=== PATIENT | male | born 1975 | race Caucasian/White ===

== ENCOUNTER 2017-03-17 10:06 | Emergency (ER) | payer MEDICAID ==
[~2017-03-17] VITALS: Ht 172.7 cm; Wt 66.4 kg
[2017-03-17] MEDS ORDERED: SODIUM CHLORIDE 0.9% 1,000 ML IV ONE (11:39)
[2017-03-17] MEDS ORDERED: ONDANSETRON 2MG/ML, 2ML ONE (11:47)
[2017-03-17] MEDS ORDERED: LORazepam 2 MG/ML, 1ML ONE ×2 (11:47→14:37)
[2017-03-17] MEDS ORDERED: SODIUM CHLORIDE 0.9% 1,000ML IVBOLUS ONE (12:00)
[2017-03-17] MEDS ORDERED: THIAMINE 100 MG in SODIUM CHLORIDE 0.9% 50 ML IVPB ONE (12:00)
[2017-03-17] MEDS ORDERED: SODIUM CHLORIDE FLUSH 10ML SYR IVF ONE (12:00)
[2017-03-17] MEDS ORDERED: ONDANSETRON 2MG/ML, 2ML IVPush ONE (12:00)
[2017-03-17] MEDS ORDERED: MECLIZINE CHEWABLE 25 MG TAB PO ONE (12:30)
[2017-03-17] MEDS: LORazepam 2 MG/ML, 1ML IVPush PRN ×2 (12:38→14:39)
[2017-03-17 12:43] LABS: ASPARTATE AMINO TRANSFERASE 96 U/L (15-37); BLOOD UREA NITROGEN 8 mg/dL (7-18)
[2017-03-17] MEDS ORDERED: MECLIZINE CHEWABLE 25 MG TAB ONE (13:03)
[2017-03-17 16:12] VITALS: BP 119/73
== END 2017-03-17 16:29 | disposition home or self-care (01) ==
LOC: ED 13:56
DX: F10.151 Alcohol abuse with alcohol-induced psychotic disorder with hallucinations (principal)
CPT/HCPCS: 36415; 70450; 80053; 83605; 83690; 85025; 93005; 96365; 96366; 96375; 96376; 99285; J2060; J2405; J3411; J7030

== ENCOUNTER 2018-05-08 22:29 | Inpatient (IN) | payer MEDICAID, OTHER ==
[~2018-05-08] VITALS: Ht 182.9 cm; Wt 75.0 kg
[~2018-05-08 22:29] MED LIST: DIVA500T2 PO; LEVE500T53 PO; PROP10TA PO
[2018-05-08] MEDS ORDERED: LORazepam 2 MG/ML, 1ML IVPush ONE (23:00)
[2018-05-08] MEDS ORDERED: SODIUM CHLORIDE 0.9% 1,000ML IVBOLUS ONE (23:00)
[2018-05-08] MEDS ORDERED: FAMOTIDINE 20 MG/2 ML IVP ONE (23:00)
[2018-05-08] MEDS ORDERED: PROMETHAZINE 25 MG/ML, 1ML IM ONE (23:00)
[2018-05-08] MEDS ORDERED: SODIUM CHLORIDE FLUSH 10ML SYR IVF ONE (23:00)
[2018-05-08 23:13] LABS: BASOPHILS # (AUTO) 0.02 x10^3/uL (0-0.1); BASOPHILS % (AUTO) 0 % (0-1); EOSINOPHILS % (AUTO) 0 % (1-7); LYMPHOCYTES # (AUTO) 0.47 x10^3/uL (1-3.4); LYMPHOCYTES % (AUTO) 4 % (22-44); MD NO; MEAN CORPUSCULAR HGB CONC 33.7 g/dL (33.2-36.2); MEAN PLATELET VOLUME 8.9 fL (7.4-10.4); MONOCYTES # (AUTO) 1.16 x10^3/uL (0.2-0.8); MONOCYTES % (AUTO) 9 % (2-9); NEUTROPHILS # (AUTO) 11.59 x10^3/uL (1.8-6.8); NEUTROPHILS % (AUTO) 88 % (42-75); PLATELET COUNT 185 x10^3/uL (130-400); RED BLOOD COUNT 6.02 x10^6/uL (4.38-5.82); RED CELL DISTRIBUTION WIDTH 14.3 % (9.4-14.8)
[2018-05-08] MEDS ORDERED: PROMETHAZINE 25 MG/ML, 1ML ONE (23:21)
[2018-05-08] MEDS ORDERED: LORazepam 2 MG/ML, 1ML ONE (23:21)
[2018-05-08] MEDS ORDERED: FAMOTIDINE 20 MG/2 ML ONE (23:22)
[2018-05-08 23:24] LABS: ALANINE AMINOTRANSFERASE 66 U/L (12-78); ALBUMIN 5.6 g/dL (3.4-5.0); ANION GAP 36 mmol/L (5-15); CALCIUM 10.4 mg/dL (8.5-10.1); CHLORIDE 81 mmol/L (98-107); CREATININE 2.35 mg/dL (0.7-1.3)
[2018-05-08 23:25] LABS: ALKALINE PHOSPHATASE 88 U/L (45-117); BILIRUBIN,TOTAL 1.5 mg/dL (0.2-1.0); TOTAL PROTEIN 10.3 g/dL (6.4-8.2)
[2018-05-08 23:32] LABS: MICROSCOPIC INDICATED
[2018-05-08 23:38] LABS: AMPHETAMINE SCREEN, URINE Negative (Negative); BARBITURATE SCREEN, URINE Negative (Negative); BENZODIAZEPINE SCREEN, URINE Negative (Negative); CANNABINOID SCREEN, URINE Positive (Negative); COCAINE SCREEN, URINE Negative (Negative); METHADONE SCREEN, URINE Negative (Negative); OPIATE SCREEN, URINE Negative (Negative)
[2018-05-08 23:56] LABS: CULTURE INDICATED? YES
[2018-05-09] MEDS ORDERED: SODIUM CHLORIDE 0.9% 1,000ML IVBOLUS ONE
[2018-05-09] MEDS ORDERED: CEFOTETAN PMX 1GM/50ML 50 ML IV ONE (01:00)
[2018-05-09] MEDS ORDERED: CEFOTETAN PMX 1GM/50ML 50 ML ONE (01:13)
[2018-05-09 02:55] VITALS: BP 136/85
[2018-05-09] MEDS ORDERED: POTASSIUM CHLORIDE 20 MEQ, MAGNESIUM SULFATE 2 GM, THIAMINE 100 MG, MVI ADULT 10 ML, FO... IV SCH ×2 (03:46→16:30)
[2018-05-09] MEDS ORDERED: BISACODYL 10 MG SUPP PR PRN (04:00)
[2018-05-09] MEDS ORDERED: LORazepam 1MG TABLET PO PRN ×4 (04:00)
[2018-05-09] MEDS ORDERED: DOCUSATE 100 MG CAPSULE PO PRN (04:00)
[2018-05-09] MEDS ORDERED: PROMETHAZINE 25 MG/ML, 1ML IM PRN (04:00)
[2018-05-09] MEDS ORDERED: LABETALOL 5MG/ML, 20ML IVPush PRN (04:00)
[2018-05-09] MEDS ORDERED: POLYETHYLENE GLYCOL 17 GM PACKET PO PRN (04:00)
[2018-05-09] MEDS ORDERED: LORazepam 0.5MG TABLET PO PRN (04:00)
[2018-05-09] MEDS ORDERED: LORazepam 2 MG/ML, 1ML IV PRN ×5 (04:00)
[2018-05-09] MEDS ORDERED: ONDANSETRON ODT 4 MG PO PRN (04:00)
[2018-05-09] MEDS ORDERED: ACETAMINOPHEN 325 MG TABLET PO PRN (04:00)
[2018-05-09] MEDS ORDERED: PANTOPRAZOLE 40 MG IV IVPush SCH (04:00)
[2018-05-09] MEDS ORDERED: hydrALAzine 20 MG/ML, 1ML IVPush PRN (04:00)
[2018-05-09 04:18] LABS: MEAN CORPUSCULAR HEMOGLOBIN 31.6 pg (27.5-34.5); MEAN CORPUSCULAR HGB CONC 34.6 g/dL (33.2-36.2); MEAN CORPUSCULAR VOLUME 91.4 fL (81-97); MEAN PLATELET VOLUME 8.9 fL (7.4-10.4); PLATELET COUNT 161 x10^3/uL (130-400); RED BLOOD COUNT 5.14 x10^6/uL (4.38-5.82); RED CELL DISTRIBUTION WIDTH 14.1 % (9.4-14.8)
[2018-05-09 04:27] LABS: ALBUMIN 4.2 g/dL (3.4-5.0); ANION GAP 17 mmol/L (5-15); CALCIUM 8.4 mg/dL (8.5-10.1); CHLORIDE 97 mmol/L (98-107)
[2018-05-09 04:30] LABS: ALANINE AMINOTRANSFERASE 49 U/L (12-78); CHOLESTEROL, TOTAL 239 mg/dL (140-239); CREATININE 1.92 mg/dL (0.7-1.3); TRIGLYCERIDES 149 mg/dL (50-200); TROPONIN I < 0.015 ng/mL (0.000-0.045); VLDL CHOLESTEROL 30 mg/dL (0-25)
[2018-05-09 04:36] LABS: ALKALINE PHOSPHATASE 66 U/L (45-117); CHOL/HDL RATIO 3.2; FREE T4 (FREE THYROXINE) 1.17 ng/dL (0.76-1.46); HDL CHOL % 31 % (26-37); HDL CHOLESTEROL (DIRECT) 75 mg/dL (40-60); LDL CHOLESTEROL,CALCULATED 134 mg/dL (54-169); LDL/HDL RATIO 1.8 (0.5-3.0); THYROID STIMULATING HORMONE 0.709 mIU/L (0.358-3.740); TOTAL PROTEIN 7.9 g/dL (6.4-8.2)
[2018-05-09 04:56] LABS: BASOPHILS % (AUTO) 0 % (0-1); EOSINOPHILS % (AUTO) 0 % (1-7); LYMPHOCYTES # (AUTO) 0.82 x10^3/uL (1-3.4); LYMPHOCYTES % (AUTO) 7 % (22-44); MD SCAN; MONOCYTES # (AUTO) 1.45 x10^3/uL (0.2-0.8); MONOCYTES % (AUTO) 13 % (2-9); NEUTROPHILS # (AUTO) 9.05 x10^3/uL (1.8-6.8); NEUTROPHILS % (AUTO) 80 % (42-75)
[2018-05-09 05:04] LABS: HEMOGLOBIN A1C 5.5 % (4.2-6.3)
[2018-05-09] MEDS: NICOTINE 14MG/24 HR PATCH.TD24 TD SCH (05:05)
[2018-05-09] MEDS: ONDANSETRON 2MG/ML, 2ML IVPush PRN ×3 (05:05→18:06)
[2018-05-09 07:50] VITALS: BP 139/82
[2018-05-09] MEDS: SODIUM CHLORIDE 0.9% 1,000 ML IV SCH ×2 (10:00→16:40)
[2018-05-09] MEDS: LEVETIRACETAM 500 MG TABLET PO SCH ×2 (10:19→21:33)
[2018-05-09] MEDS: PROPRANOLOL 10 MG TABLET PO SCH (10:19)
[2018-05-09] MEDS: DIVALPROEX 250 MG TABLET.DR PO SCH ×2 (10:19→21:33)
[2018-05-09 10:36] LABS: TROPONIN I < 0.015 ng/mL (0.000-0.045)
[2018-05-09 14:07] VITALS: BP 134/78
[2018-05-09] MEDS: POTASSIUM CHLORIDE 20 MEQ, MAGNESIUM SULFATE 2 GM, THIAMINE 100 MG, MVI ADULT 10 ML, FO... IV SCH (16:27)
[2018-05-09 16:32] LABS: CULTURE INDICATED? NO; MICROSCOPIC AUTO
[2018-05-09 19:31] VITALS: BP 115/75
[2018-05-10 02:47] VITALS: BP 122/79
[2018-05-10] MEDS: POTASSIUM CHLORIDE 20 MEQ, MAGNESIUM SULFATE 2 GM, THIAMINE 100 MG, MVI ADULT 10 ML, FO... IV SCH (05:35)
[2018-05-10] MEDS: ONDANSETRON 2MG/ML, 2ML IVPush PRN ×3 (05:36→16:29)
[2018-05-10 06:01] LABS: BASOPHILS # (AUTO) 0.05 x10^3/uL (0-0.1); BASOPHILS % (AUTO) 1 % (0-1); EOSINOPHILS # (AUTO) 0.02 x10^3/uL (0-0.4); EOSINOPHILS % (AUTO) 0 % (1-7); LYMPHOCYTES # (AUTO) 2.24 x10^3/uL (1-3.4); LYMPHOCYTES % (AUTO) 23 % (22-44); MD NO; MEAN CORPUSCULAR HEMOGLOBIN 31.4 pg (27.5-34.5); MEAN CORPUSCULAR HGB CONC 33.8 g/dL (33.2-36.2); MEAN CORPUSCULAR VOLUME 92.9 fL (81-97); MEAN PLATELET VOLUME 9.7 fL (7.4-10.4); MONOCYTES # (AUTO) 0.93 x10^3/uL (0.2-0.8); MONOCYTES % (AUTO) 10 % (2-9); NEUTROPHILS # (AUTO) 6.52 x10^3/uL (1.8-6.8); NEUTROPHILS % (AUTO) 67 % (42-75); PLATELET COUNT 116 x10^3/uL (130-400); RED BLOOD COUNT 5.02 x10^6/uL (4.38-5.82); RED CELL DISTRIBUTION WIDTH 14.4 % (9.4-14.8)
[2018-05-10 06:05] LABS: ANION GAP 9 mmol/L (5-15); CALCIUM 8.9 mg/dL (8.5-10.1); CHLORIDE 102 mmol/L (98-107); CREATININE 1.33 mg/dL (0.7-1.3)
[2018-05-10] MEDS ORDERED: PANTOPROZOLE 40MG TABLET PO SCH (07:30)
[2018-05-10 08:38] VITALS: BP 126/72
[2018-05-10] MEDS: NICOTINE 14MG/24 HR PATCH.TD24 TD SCH (09:00)
[2018-05-10] MEDS ORDERED: POTASSIUM CHLORIDE 20 MEQ TAB.ER.PRT PO ONE (09:00)
[2018-05-10] MEDS: NEUTRA PHOS K 250 MG TABLET PO SCH ×3 (09:13→21:49)
[2018-05-10] MEDS: LEVETIRACETAM 500 MG TABLET PO SCH (09:13)
[2018-05-10] MEDS: PROPRANOLOL 10 MG TABLET PO SCH (09:13)
[2018-05-10] MEDS: DIVALPROEX 250 MG TABLET.DR PO SCH (09:13)
[2018-05-10] MEDS: SUCRALFATE 1 GM/10 ML UDC PO SCH ×3 (10:48→21:49)
[2018-05-10] MEDS ORDERED: ENOXAPARIN 40 MG/0.4 ML SQ SCH (11:00)
[2018-05-10 12:58] VITALS: BP 122/85
[2018-05-10] MEDS: PANTOPROZOLE 40MG TABLET PO SCH (16:29)
[2018-05-10 20:00] VITALS: BP 120/86
[2018-05-11 01:06] VITALS: BP 122/80
[2018-05-11] MEDS: POTASSIUM CHLORIDE 20 MEQ, MAGNESIUM SULFATE 2 GM, THIAMINE 100 MG, MVI ADULT 10 ML, FO... IV SCH (06:00)
[2018-05-11 06:03] LABS: MEAN CORPUSCULAR HEMOGLOBIN 31.5 pg (27.5-34.5); MEAN CORPUSCULAR VOLUME 92.7 fL (81-97); MEAN PLATELET VOLUME 10.5 fL (7.4-10.4); PLATELET COUNT 95 x10^3/uL (130-400); RED BLOOD COUNT 4.34 x10^6/uL (4.38-5.82); RED CELL DISTRIBUTION WIDTH 13.9 % (9.4-14.8)
[2018-05-11 06:14] LABS: ANION GAP 6 mmol/L (5-15); CALCIUM 8.5 mg/dL (8.5-10.1); CHLORIDE 105 mmol/L (98-107)
[2018-05-11 06:19] LABS: ALANINE AMINOTRANSFERASE 49 U/L (12-78); ALKALINE PHOSPHATASE 45 U/L (45-117); BILIRUBIN,TOTAL 1.1 mg/dL (0.2-1.0); CREATININE 0.68 mg/dL (0.7-1.3); TOTAL PROTEIN 6.2 g/dL (6.4-8.2)
[2018-05-11 06:38] LABS: BASOPHILS # (AUTO) 0.02 x10^3/uL (0-0.1); BASOPHILS % (AUTO) 0 % (0-1); EOSINOPHILS # (AUTO) 0.05 x10^3/uL (0-0.4); EOSINOPHILS % (AUTO) 1 % (1-7); LYMPHOCYTES # (AUTO) 1.84 x10^3/uL (1-3.4); LYMPHOCYTES % (AUTO) 31 % (22-44); MD SCAN; MONOCYTES # (AUTO) 0.36 x10^3/uL (0.2-0.8); MONOCYTES % (AUTO) 6 % (2-9); NEUTROPHILS # (AUTO) 3.62 x10^3/uL (1.8-6.8); NEUTROPHILS % (AUTO) 61 % (42-75)
[2018-05-11 06:44] VITALS: BP 131/75
[2018-05-11] MEDS: POTASSIUM CHLORIDE 10% 40 MEQ/30 ML UDC PO SCH ×2 (08:53→11:45)
[2018-05-11] MEDS: PANTOPROZOLE 40MG TABLET PO SCH (08:53)
[2018-05-11] MEDS: SUCRALFATE 1 GM/10 ML UDC PO SCH ×2 (08:53→11:44)
[2018-05-11] MEDS: PROPRANOLOL 10 MG TABLET PO SCH (08:53)
[2018-05-11] MEDS: ONDANSETRON 2MG/ML, 2ML IVPush PRN (08:54)
[2018-05-11] MEDS: NICOTINE 14MG/24 HR PATCH.TD24 TD SCH (08:54)
[2018-05-11] MEDS ORDERED: SUCR1ORA5 PO (10:38)
[2018-05-11] MEDS ORDERED: OMEP40CA6 PO (10:41)
[2018-05-11] MEDS ORDERED: POTASSIUM CHLORIDE 10% 40 MEQ/30 ML UDC PO SCH (12:45)
[2018-05-11] MEDS ORDERED: PROP10TA PO (13:06)
[2018-05-11] MEDS ORDERED: ONDA4TAB10 PO (13:06)
[2018-05-11] MEDS ORDERED: POTASSIUM CHLORIDE 20 MEQ TAB.ER.PRT PO SCH (13:30)
== END 2018-05-11 12:45 | disposition home or self-care (01) | DRG 871 ==
LOC: ED 23:54 → EDIP 05-09 01:57 → 4EST 05-09 02:47 → DCLOUNGE 05-11 12:40
PROVIDERS: ADMIT Internal Medicine; ATTEND Internal Medicine
DX: A41.9 Sepsis, unspecified organism (principal); N17.0 Acute kidney failure with tubular necrosis; E87.1 Hypo-osmolality and hyponatremia; F10.239 Alcohol dependence with withdrawal, unspecified; D69.6 Thrombocytopenia, unspecified; D75.1 Secondary polycythemia; E83.39 Other disorders of phosphorus metabolism; F17.210 Nicotine dependence, cigarettes, uncomplicated; T40.7X5A Adverse effect of cannabis (derivatives), initial encounter; E86.0 Dehydration; E87.6 Hypokalemia; F12.10 Cannabis abuse, uncomplicated; I10 Essential (primary) hypertension; K20.9 Esophagitis, unspecified; K29.70 Gastritis, unspecified, without bleeding; Z91.14 Patient's other noncompliance with medication regimen; Y92.89 Other specified places as the place of occurrence of the external cause; Z71.6 Tobacco abuse counseling
CPT/HCPCS: 36415; 99285; J7042; S0028; 74176; 80048; 80053; 80061; 80307; 81001; 83036; 83605; 83690; 83735; 84100; 84439; 84443; 84484; 85025; 87040; 87086; 96361; 96365; 96372; 96375; J2405; J2550; J3411; J3475; J3480; C9113; J2060; J7030; S0074

== ENCOUNTER 2018-07-22 11:20 | Emergency (ER) | payer MEDICAID ==
[~2018-07-22] VITALS: Ht 182.9 cm; Wt 65.0 kg
[~2018-07-22 11:20] MED LIST changes: +OMEP40CA6 PO; +ONDA4TAB10 PO; +SUCR1ORA5 PO
[2018-07-22] MEDS ORDERED: CHLORDIAZEPOXIDE 25 MG CAPSULE PO ONE (11:30)
[2018-07-22] MEDS ORDERED: THIAMINE 100 MG in SODIUM CHLORIDE 0.9% 50 ML IVPB ONE (11:30)
[2018-07-22] MEDS ORDERED: SODIUM CHLORIDE FLUSH 10ML SYR IVF ONE (11:30)
[2018-07-22] MEDS ORDERED: SODIUM CHLORIDE 0.9% 1,000ML IVBOLUS ONE (11:30)
[2018-07-22] MEDS ORDERED: LORazepam 2 MG/ML, 1ML ONE ×3 (11:51→13:42)
[2018-07-22] MEDS ORDERED: CHLORDIAZEPOXIDE 25 MG CAPSULE ONE (11:54)
[2018-07-22] MEDS: LORazepam 2 MG/ML, 1ML IVPush PRN ×2 (11:58→13:45)
[2018-07-22 11:59] LABS: BASOPHILS # (AUTO) 0.03 x10^3/uL (0-0.1); BASOPHILS % (AUTO) 0 % (0-1); EOSINOPHILS # (AUTO) 0.03 x10^3/uL (0-0.4); EOSINOPHILS % (AUTO) 1 % (1-7); LYMPHOCYTES # (AUTO) 1.67 x10^3/uL (1-3.4); LYMPHOCYTES % (AUTO) 25 % (22-44); MD NO; MEAN CORPUSCULAR HEMOGLOBIN 31.5 pg (27.5-34.5); MEAN CORPUSCULAR HGB CONC 33.8 g/dL (33.2-36.2); MEAN CORPUSCULAR VOLUME 93.2 fL (81-97); MEAN PLATELET VOLUME 8.8 fL (7.4-10.4); MONOCYTES % (AUTO) 11 % (2-9); NEUTROPHILS # (AUTO) 4.18 x10^3/uL (1.8-6.8); NEUTROPHILS % (AUTO) 63 % (42-75); PLATELET COUNT 174 x10^3/uL (130-400); RED BLOOD COUNT 5.07 x10^6/uL (4.38-5.82); RED CELL DISTRIBUTION WIDTH 14.1 % (9.4-14.8)
[2018-07-22 12:11] LABS: ALANINE AMINOTRANSFERASE 128 U/L (12-78); ALBUMIN 4.5 g/dL (3.4-5.0); ANION GAP 20 mmol/L (5-15); CALCIUM 9.1 mg/dL (8.5-10.1); CHLORIDE 100 mmol/L (98-107); CREATININE 0.82 mg/dL (0.7-1.3)
[2018-07-22 12:22] LABS: ALKALINE PHOSPHATASE 67 U/L (45-117); BILIRUBIN,TOTAL 0.8 mg/dL (0.2-1.0); TOTAL PROTEIN 8.7 g/dL (6.4-8.2)
[2018-07-22 16:11] VITALS: BP 113/69
== END 2018-07-22 16:25 | disposition home or self-care (01) ==
LOC: ED 12:53
DX: F10.220 Alcohol dependence with intoxication, uncomplicated (principal); I10 Essential (primary) hypertension; G40.909 Epilepsy, unspecified, not intractable, without status epilepticus
CPT/HCPCS: 36415; 80053; 80307; 83735; 85025; 96365; 96366; 96375; 96376; 99285; J2060; J3411; J7030; 99284

== ENCOUNTER 2018-08-11 09:48 | Inpatient (IN) | payer MEDICAID ==
[~2018-08-11] VITALS: Ht 182.9 cm; Wt 72.0 kg
[2018-08-11] MEDS ORDERED: CHLORDIAZEPOXIDE 25 MG CAPSULE PO ONE (10:00)
[2018-08-11] MEDS ORDERED: SODIUM CHLORIDE FLUSH 10ML SYR IVF ONE (10:00)
[2018-08-11] MEDS ORDERED: SODIUM CHLORIDE 0.9% 1,000ML IVBOLUS ONE (10:00)
[2018-08-11] MEDS ORDERED: CHLORDIAZEPOXIDE 25 MG CAPSULE ONE (10:18)
[2018-08-11] MEDS ORDERED: LORazepam 2 MG/ML, 1ML ONE (10:19)
[2018-08-11 10:20] LABS: INTERNATIONAL NORMALIZED RATIO 0.98 (0.93-1.1); PROTHROMBIN TIME 10.1 Seconds (9.6-11.5)
[2018-08-11 10:22] LABS: ALANINE AMINOTRANSFERASE 94 U/L (12-78); ALBUMIN 4.2 g/dL (3.4-5.0); ANION GAP 19 mmol/L (5-15); CHLORIDE 94 mmol/L (98-107); CREATININE 0.92 mg/dL (0.7-1.3); MEAN CORPUSCULAR HEMOGLOBIN 32.3 pg (27.5-34.5); MEAN CORPUSCULAR HGB CONC 34.3 g/dL (33.2-36.2); MEAN CORPUSCULAR VOLUME 94.1 fL (81-97); RED BLOOD COUNT 4.72 x10^6/uL (4.38-5.82); RED CELL DISTRIBUTION WIDTH 13.6 % (9.4-14.8)
[2018-08-11 10:24] LABS: ALKALINE PHOSPHATASE 57 U/L (45-117); BILIRUBIN,TOTAL 1.3 mg/dL (0.2-1.0); TOTAL PROTEIN 7.7 g/dL (6.4-8.2)
[2018-08-11] MEDS: LORazepam 2 MG/ML, 1ML IVPush PRN ×2 (10:24→11:00)
[2018-08-11] MEDS ORDERED: MAGNESIUM SULFATE 1 GM, THIAMINE 100 MG, FOLIC ACID 1 MG, MVI ADULT 10 ML in SODIUM CHL... IV ONE (10:30)
[2018-08-11 10:43] LABS: ACETONE, SERUM Large (80mg/dL) mg/dL (Negative)
[2018-08-11 10:57] LABS: BASOPHILS # (AUTO) 0.03 x10^3/uL (0-0.1); BASOPHILS % (AUTO) 0 % (0-1); EOSINOPHILS # (AUTO) 0.03 x10^3/uL (0-0.4); EOSINOPHILS % (AUTO) 0 % (1-7); LYMPHOCYTES # (AUTO) 0.72 x10^3/uL (1-3.4); LYMPHOCYTES % (AUTO) 10 % (22-44); MD SCAN; MEAN PLATELET VOLUME 9.8 fL (7.4-10.4); MONOCYTES # (AUTO) 0.49 x10^3/uL (0.2-0.8); MONOCYTES % (AUTO) 7 % (2-9); NEUTROPHILS % (AUTO) 82 % (42-75); PLATELET COUNT 83 x10^3/uL (130-400)
[2018-08-11] MEDS ORDERED: MAGNESIUM SULFATE PMX 2GM/50ML 50 ML IV ONE (11:00)
[2018-08-11 11:37] LABS: MICROSCOPIC AUTO
[2018-08-11 11:41] LABS: CULTURE INDICATED? YES
[2018-08-11] MEDS ORDERED: POTASSIUM CHLORIDE 20 MEQ TAB.ER.PRT PO ONE (12:00)
[2018-08-11] MEDS ORDERED: DOCUSATE 100 MG CAPSULE PO PRN (12:30)
[2018-08-11] MEDS ORDERED: LORazepam 1MG TABLET PO PRN ×3 (12:30)
[2018-08-11] MEDS ORDERED: LORazepam 2 MG/ML, 1ML IV PRN ×5 (12:30)
[2018-08-11] MEDS ORDERED: HEPARIN 5,000 UNITS/ML, 1ML SQ SCH (12:30)
[2018-08-11] MEDS ORDERED: BISACODYL 10 MG SUPP PR PRN (12:30)
[2018-08-11] MEDS ORDERED: NICOTINE 7 MG/24 HR PATCH.TD24 TD SCH (12:30)
[2018-08-11] MEDS ORDERED: LABETALOL 5MG/ML, 20ML IVPush PRN (12:30)
[2018-08-11] MEDS ORDERED: LORazepam 0.5MG TABLET PO PRN (12:30)
[2018-08-11] MEDS ORDERED: ONDANSETRON 2MG/ML, 2ML IVPush PRN (12:30)
[2018-08-11] MEDS ORDERED: ENALAPRILAT 1.25 MG/ML, 2ML IVPush PRN (12:30)
[2018-08-11 12:58] LABS: % IRON SATURATION 82 % (20-55); IRON LEVEL 187 mcg/dL (65-175); TOTAL IRON BINDING CAPACITY 228 mcg/dL (250-450)
[2018-08-11 13:17] VITALS: BP 118/72
[2018-08-11 18:12] VITALS: BP 118/72
[2018-08-11] MEDS ORDERED: DIVA500T2 PO (18:12)
[2018-08-11] MEDS ORDERED: LEVE750T37 PO (18:12)
[2018-08-11] MEDS: LORazepam 1MG TABLET PO PRN ×2 (18:20→22:08)
[2018-08-11 19:50] VITALS: BP 138/82
[2018-08-11] MEDS: ONDANSETRON ODT 4 MG PO PRN (22:08)
[2018-08-12 01:13] VITALS: BP 120/78
[2018-08-12] MEDS: ONDANSETRON ODT 4 MG PO PRN (05:43)
[2018-08-12] MEDS: LORazepam 1MG TABLET PO PRN (05:43)
[2018-08-12 06:28] LABS: ALBUMIN 3.5 g/dL (3.4-5.0); ANION GAP 14 mmol/L (5-15); CALCIUM 8.4 mg/dL (8.5-10.1); CHLORIDE 103 mmol/L (98-107)
[2018-08-12 06:33] LABS: ALANINE AMINOTRANSFERASE 77 U/L (12-78); ALKALINE PHOSPHATASE 52 U/L (45-117); BILIRUBIN,TOTAL 1.1 mg/dL (0.2-1.0); TOTAL PROTEIN 6.9 g/dL (6.4-8.2)
[2018-08-12 06:41] LABS: BASOPHILS # (AUTO) 0.02 x10^3/uL (0-0.1); BASOPHILS % (AUTO) 0 % (0-1); EOSINOPHILS # (AUTO) 0.14 x10^3/uL (0-0.4); EOSINOPHILS % (AUTO) 3 % (1-7); LYMPHOCYTES # (AUTO) 1.43 x10^3/uL (1-3.4); LYMPHOCYTES % (AUTO) 30 % (22-44); MD SCAN; MEAN CORPUSCULAR HEMOGLOBIN 31.8 pg (27.5-34.5); MEAN CORPUSCULAR HGB CONC 33.8 g/dL (33.2-36.2); MONOCYTES # (AUTO) 0.39 x10^3/uL (0.2-0.8); MONOCYTES % (AUTO) 8 % (2-9); NEUTROPHILS # (AUTO) 2.74 x10^3/uL (1.8-6.8); NEUTROPHILS % (AUTO) 58 % (42-75); PLATELET COUNT 60 x10^3/uL (130-400); RED BLOOD COUNT 4.52 x10^6/uL (4.38-5.82); RED CELL DISTRIBUTION WIDTH 14.1 % (9.4-14.8)
[2018-08-12 07:30] VITALS: BP 117/74
[2018-08-12] MEDS ORDERED: SENNA/DOCUSATE TABLET PO SCH (09:00)
== END 2018-08-12 12:30 | disposition home or self-care (01) | DRG 897 ==
LOC: ED 09:53 → EDIP 11:32 → 4EST 12:50
PROVIDERS: ADMIT Internal Medicine; ATTEND Internal Medicine
DX: F10.239 Alcohol dependence with withdrawal, unspecified (principal); E87.1 Hypo-osmolality and hyponatremia; E87.2 Acidosis; G40.909 Epilepsy, unspecified, not intractable, without status epilepticus; I10 Essential (primary) hypertension; E87.6 Hypokalemia; E83.42 Hypomagnesemia; D69.59 Other secondary thrombocytopenia; F12.90 Cannabis use, unspecified, uncomplicated; R74.0 Nonspecific elevation of levels of transaminase and lactic acid dehydrogenase [LDH]; Z91.19 Patient's noncompliance with other medical treatment and regimen; Z87.891 Personal history of nicotine dependence; Z91.041 Radiographic dye allergy status; Z91.013 Allergy to seafood
CPT/HCPCS: 36415; 80053; 80177; 80307; 81001; 82010; 83540; 83550; 83690; 83735; 84100; 85025; 85610; 87086; 93005; 96361; 96374; 96375; 99291; G0378; J3411; J3475; Q0162; J2060; J7030

== ENCOUNTER 2018-08-25 18:10 | Emergency (ER) | payer MEDICAID ==
[~2018-08-25] VITALS: Ht 182.9 cm; Wt 70.0 kg
[~2018-08-25 18:10] MED LIST changes: +LEVE750T37 PO
[2018-08-25] MEDS ORDERED: LORazepam 2 MG/ML, 1ML ONE (18:59)
[2018-08-25] MEDS ORDERED: LORazepam 2 MG/ML, 1ML IVPush PRN (19:00)
[2018-08-25] MEDS ORDERED: MAGNESIUM SULFATE 1 GM, THIAMINE 100 MG, FOLIC ACID 1 MG, MVI ADULT 10 ML in SODIUM CHL... IV ONE (19:00)
[2018-08-25] MEDS ORDERED: ONDANSETRON 2MG/ML, 2ML IVPush ONE (19:00)
[2018-08-25] MEDS ORDERED: ONDANSETRON 2MG/ML, 2ML ONE (19:03)
[2018-08-25 19:40] LABS: BASOPHILS # (AUTO) 0.02 x10^3/uL (0-0.1); BASOPHILS % (AUTO) 0 % (0-1); EOSINOPHILS % (AUTO) 0 % (1-7); LYMPHOCYTES # (AUTO) 1.38 x10^3/uL (1-3.4); LYMPHOCYTES % (AUTO) 23 % (22-44); MD NO; MEAN CORPUSCULAR HEMOGLOBIN 31.7 pg (27.5-34.5); MEAN CORPUSCULAR HGB CONC 33.9 g/dL (33.2-36.2); MEAN CORPUSCULAR VOLUME 93.6 fL (81-97); MEAN PLATELET VOLUME 9.1 fL (7.4-10.4); MONOCYTES # (AUTO) 0.53 x10^3/uL (0.2-0.8); MONOCYTES % (AUTO) 9 % (2-9); NEUTROPHILS # (AUTO) 4.15 x10^3/uL (1.8-6.8); NEUTROPHILS % (AUTO) 68 % (42-75); PLATELET COUNT 336 x10^3/uL (130-400); RED BLOOD COUNT 5.13 x10^6/uL (4.38-5.82); RED CELL DISTRIBUTION WIDTH 14.1 % (9.4-14.8)
[2018-08-25 19:47] LABS: ALANINE AMINOTRANSFERASE 125 U/L (12-78); ALBUMIN 4.4 g/dL (3.4-5.0); ANION GAP 21 mmol/L (5-15); CALCIUM 8.7 mg/dL (8.5-10.1); CHLORIDE 97 mmol/L (98-107)
[2018-08-25 19:49] LABS: ALKALINE PHOSPHATASE 69 U/L (45-117); BILIRUBIN,TOTAL 0.5 mg/dL (0.2-1.0); TOTAL PROTEIN 8.8 g/dL (6.4-8.2)
[2018-08-25 21:24] VITALS: BP 124/68
== END 2018-08-25 21:27 | disposition home or self-care (01) ==
LOC: ED 20:16
DX: F10.220 Alcohol dependence with intoxication, uncomplicated (principal); I10 Essential (primary) hypertension; F17.200 Nicotine dependence, unspecified, uncomplicated; G40.909 Epilepsy, unspecified, not intractable, without status epilepticus
CPT/HCPCS: 36415; 80053; 80307; 83690; 83735; 85025; 96365; 96366; 96375; 99285; J2405; J3411; J3475; J7030

== ENCOUNTER 2018-10-11 07:35 | Emergency (ER) | payer MEDICAID ==
[~2018-10-11] VITALS: Ht 182.9 cm; Wt 67.8 kg
[~2018-10-11 07:35] MED LIST changes: -PROP10TA PO; +PROP10TA16 PO
[2018-10-11 07:38] VITALS: BP 129/91
--- NOTE | 2018-10-11 07:42 | NUR ---
supervisor paint roller covers: EKG completed in triage.
[2018-10-11] MEDS ORDERED: THIAMINE 100MG TABLET PO ONE (08:30)
[2018-10-11] MEDS ORDERED: SODIUM CHLORIDE FLUSH 10ML SYR IVF ONE (08:30)
[2018-10-11] MEDS ORDERED: THIAMINE 100MG TABLET ONE (08:31)
[2018-10-11 08:40] LABS: ALBUMIN 4.2 g/dL (3.4-5.0); ANION GAP 9 mmol/L (5-15); CALCIUM 8.5 mg/dL (8.5-10.1); CHLORIDE 101 mmol/L (98-107)
[2018-10-11 08:43] LABS: ALANINE AMINOTRANSFERASE 65 U/L (12-78); ALKALINE PHOSPHATASE 70 U/L (45-117); CREATINE KINASE, TOTAL 363 U/L (39-308); TOTAL PROTEIN 7.9 g/dL (6.4-8.2)
[2018-10-11 09:11] LABS: MEAN CORPUSCULAR HEMOGLOBIN 31.5 pg (27.5-34.5); MEAN CORPUSCULAR VOLUME 92.7 fL (81-97); MEAN PLATELET VOLUME 10.9 fL (7.4-10.4); PLATELET COUNT 75 x10^3/uL (130-400); RED BLOOD COUNT 4.63 x10^6/uL (4.38-5.82); RED CELL DISTRIBUTION WIDTH 13.8 % (9.4-14.8)
--- NOTE | 2018-10-11 09:29 | NUR ---
PT RPTS THAT HE WENT TO BED ON MONDAY NIGHT, WOKE ON MONDAY MORNING WITH THE RIGHT SIDE OF HIS TONGUE SWOLLEN AND BRUISED. PT VERBALIZES "I'M PRETTY SURE I HAD A SEIZURE" PT C/O CONTINUED WEAKNESS AND TONGUE SWELLING
[2018-10-11 09:31] LABS: BASOPHILS # (AUTO) 0.01 x10^3/uL (0-0.1); BASOPHILS % (AUTO) 0 % (0-1); EOSINOPHILS # (AUTO) 0.23 x10^3/uL (0-0.4); EOSINOPHILS % (AUTO) 3 % (1-7); LYMPHOCYTES # (AUTO) 0.93 x10^3/uL (1-3.4); LYMPHOCYTES % (AUTO) 14 % (22-44); MD SCAN; MONOCYTES # (AUTO) 0.23 x10^3/uL (0.2-0.8); MONOCYTES % (AUTO) 3 % (2-9); NEUTROPHILS # (AUTO) 5.49 x10^3/uL (1.8-6.8); NEUTROPHILS % (AUTO) 80 % (42-75)
[2018-10-11 09:41] LABS: CULTURE INDICATED? YES; MICROSCOPIC INDICATED
--- NOTE | 2018-10-11 10:37 | NUR ---
MATILDA PHILIP AT BEDSIDE, D/C PLAN DISCUSSED AND QUESTIONS ANSWERED.
--- NOTE | 2018-10-11 10:47 | NUR ---
Patient/Caregiver given discharge instructions and they have confirmed that they understand the instructions. Patient ambulatory with steady gait.
[2018-10-24] MEDS ORDERED: LEVE250T28 PO (17:57)
[2018-10-24] MEDS ORDERED: DIVA125T2 PO (17:57)
== END 2018-10-11 10:48 | disposition home or self-care (01) ==
LOC: ED 08:59
DX: M79.10 Myalgia, unspecified site (principal); R56.9 Unspecified convulsions; J93.9 Pneumothorax, unspecified
CPT/HCPCS: 36415; 71046; 80053; 80307; 81001; 82550; 85025; 87086; 93005; 99284

== ENCOUNTER 2018-10-25 09:35 | Inpatient (IN) | payer MEDICAID ==
[~2018-10-25] VITALS: Ht 182.9 cm; Wt 77.6 kg
[~2018-10-25 09:35] MED LIST changes: +DIVA125T2 PO; +LEVE250T28 PO; +PROP10TA PO; -PROP10TA16 PO
[2018-10-25] MEDS ORDERED: THIAMINE 100 MG/ML, 2ML ONE (10:16)
[2018-10-25] MEDS ORDERED: ONDANSETRON 2MG/ML, 2ML ONE (10:16)
[2018-10-25] MEDS ORDERED: LORazepam 2 MG/ML, 1ML ONE ×2 (10:18→12:39)
[2018-10-25 10:27] LABS: MEAN CORPUSCULAR HEMOGLOBIN 31.4 pg (27.5-34.5); MEAN CORPUSCULAR HGB CONC 33.6 g/dL (33.2-36.2); MEAN CORPUSCULAR VOLUME 93.5 fL (81-97); MEAN PLATELET VOLUME 8.7 fL (7.4-10.4); PLATELET COUNT 115 x10^3/uL (130-400); RED BLOOD COUNT 4.62 x10^6/uL (4.38-5.82); RED CELL DISTRIBUTION WIDTH 14.1 % (9.4-14.8)
[2018-10-25] MEDS ORDERED: THIAMINE 200 MG in SODIUM CHLORIDE 0.9% 50 ML IV ONE (10:30)
[2018-10-25 10:33] LABS: CHLORIDE 93 mmol/L (98-107)
[2018-10-25 10:34] LABS: ALANINE AMINOTRANSFERASE 83 U/L (12-78); ALBUMIN 4.2 g/dL (3.4-5.0); ANION GAP 12 mmol/L (5-15); CALCIUM 8.7 mg/dL (8.5-10.1); CREATININE 0.86 mg/dL (0.7-1.3)
[2018-10-25 10:36] LABS: ALKALINE PHOSPHATASE 133 U/L (45-117); BILIRUBIN,TOTAL 0.7 mg/dL (0.2-1.0); TOTAL PROTEIN 7.7 g/dL (6.4-8.2)
[2018-10-25 10:47] LABS: MD YES
[2018-10-25 10:49] LABS: <RBC MORPHOLOGY> NORMAL; BAND#(MANUAL) 0.26 x10^3/uL; BANDS%(MANUAL) 3 % (0-7); LYMPH#(MANUAL) 0.77 x10^3/uL (1-3.4); LYMPHS% (MANUAL) 9 % (22-44); MONOS#(MANUAL) 0.17 x10^3/uL (0.3-2.7); MONOS% (MANUAL) 2 % (2-9); SEGS% (MANUAL) 86 % (42-75)
[2018-10-25 10:50] LABS: <PLATELET ESTIMATE> DECREASED; <PLT MORPHOLOGY> NORMAL PLT MORPH
[2018-10-25] MEDS ORDERED: LORazepam 2 MG/ML, 1ML IVPush ONE ×2 (11:00→12:00)
[2018-10-25] MEDS ORDERED: ONDANSETRON 2MG/ML, 2ML IVPush ONE (11:00)
[2018-10-25] MEDS ORDERED: SODIUM CHLORIDE 0.9% 1,000ML IVBOLUS ONE (11:00)
[2018-10-25] MEDS ORDERED: THIAMINE 100 MG/ML, 2ML IM ONE (11:00)
[2018-10-25] MEDS ORDERED: CHLORDIAZEPOXIDE 25 MG CAPSULE PO ONE (12:30)
[2018-10-25] MEDS ORDERED: CHLORDIAZEPOXIDE 25 MG CAPSULE ONE (12:39)
[2018-10-25 12:44] LABS: AMPHETAMINE SCREEN, URINE Negative (Negative); BARBITURATE SCREEN, URINE Negative (Negative); BENZODIAZEPINE SCREEN, URINE Positive (Negative); CANNABINOID SCREEN, URINE Positive (Negative); COCAINE SCREEN, URINE Negative (Negative); METHADONE SCREEN, URINE Negative (Negative); OPIATE SCREEN, URINE Negative (Negative)
--- NOTE | 2018-10-25 13:45 | NUR ---
ROAD TEST UNSUCCESSFUL. PT UNABLE TO STAND WITHOUT WOBBLING AND DRY HEAVING AT THIS TIME. UNABLE TO TAKE ANY STEPS. WILL NOTIFY
[2018-10-25] MEDS ORDERED: POTASSIUM CHLORIDE 20 MEQ, MAGNESIUM SULFATE 2 GM, THIAMINE 200 MG, MVI ADULT 10 ML, FO... IV SCH (14:45)
[2018-10-25] MEDS ORDERED: LORazepam 1MG TABLET PO PRN (15:00)
[2018-10-25] MEDS ORDERED: ONDANSETRON 2MG/ML, 2ML IVPush PRN (15:00)
[2018-10-25] MEDS ORDERED: GABAPENTIN 300 MG CAPSULE PO PRN (15:00)
[2018-10-25] MEDS ORDERED: LORazepam 0.5MG TABLET PO PRN (15:00)
[2018-10-25] MEDS ORDERED: POTASSIUM CHLORIDE 20 MEQ TAB.ER.PRT PO ONE (15:00)
[2018-10-25] MEDS ORDERED: DOCUSATE 100 MG CAPSULE PO PRN (15:00)
[2018-10-25] MEDS ORDERED: ACETAMINOPHEN 325 MG TABLET PO PRN (15:00)
[2018-10-25] MEDS ORDERED: LORazepam 2 MG/ML, 1ML IV PRN ×4 (15:00)
[2018-10-25 15:49] VITALS: BP 136/83
[2018-10-25] MEDS: POTASSIUM CHLORIDE 20 MEQ, MAGNESIUM SULFATE 2 GM, THIAMINE 200 MG, MVI ADULT 10 ML, FO... IV SCH (16:00)
[2018-10-25] MEDS: CHLORDIAZEPOXIDE 10 MG CAPSULE PO SCH ×2 (16:21→20:59)
[2018-10-25] MEDS: NICOTINE 21 MG/24 HR PATCH.TD24 TD SCH (16:21)
[2018-10-25] MEDS: ENOXAPARIN 40 MG/0.4 ML SQ SCH (16:21)
[2018-10-25] MEDS: LORazepam 1MG TABLET PO PRN ×2 (17:28→21:12)
[2018-10-25] MEDS ORDERED: PROMETHAZINE 12.5 MG SUPP PR PRN (18:00)
[2018-10-25 19:16] VITALS: BP 126/84
[2018-10-25] MEDS ORDERED: FAMOTIDINE 20 MG/2 ML IVPush SCH (21:00)
[2018-10-25 22:31] LABS: CLOSTRIDIUM DIFFICILE ANTIGEN NEGATIVE; CLOSTRIDIUM DIFFICILE TOXIN NEGATIVE (Negative); OCCULT BLOOD NEGATIVE (NEGATIVE)
[2018-10-26 01:10] VITALS: BP 112/77
[2018-10-26] MEDS: SODIUM CHLORIDE 0.9% 1,000 ML IV SCH ×2 (01:10→11:07)
[2018-10-26] MEDS: LORazepam 1MG TABLET PO PRN ×2 (04:47→09:00)
[2018-10-26 05:46] LABS: ALBUMIN 3.7 g/dL (3.4-5.0); ANION GAP 4 mmol/L (5-15); CALCIUM 8.3 mg/dL (8.5-10.1); CHLORIDE 103 mmol/L (98-107)
[2018-10-26 05:50] LABS: ALANINE AMINOTRANSFERASE 68 U/L (12-78); ALKALINE PHOSPHATASE 117 U/L (45-117); BILIRUBIN,TOTAL 1.2 mg/dL (0.2-1.0); CREATININE 0.71 mg/dL (0.7-1.3)
[2018-10-26] MEDS: CHLORDIAZEPOXIDE 10 MG CAPSULE PO SCH ×4 (06:11→21:14)
[2018-10-26 08:15] VITALS: BP 111/75
[2018-10-26] MEDS: LEVETIRACETAM 500 MG TABLET PO SCH (09:00)
[2018-10-26] MEDS: DIVALPROEX 125 MG TABLET.DR PO SCH (09:00)
[2018-10-26] MEDS: FAMOTIDINE 20 MG TABLET PO SCH ×2 (09:00→21:14)
[2018-10-26 13:21] VITALS: BP 114/79
[2018-10-26] MEDS ORDERED: SIMETHICONE DROPS 40 MG/0.6 ML BOTTLE PO PRN (15:00)
[2018-10-26] MEDS: ENOXAPARIN 40 MG/0.4 ML SQ SCH (15:33)
[2018-10-26] MEDS: NICOTINE 21 MG/24 HR PATCH.TD24 TD SCH (15:34)
[2018-10-26] MEDS: POTASSIUM CHLORIDE 20 MEQ, MAGNESIUM SULFATE 2 GM, THIAMINE 200 MG, MVI ADULT 10 ML, FO... IV SCH (16:01)
[2018-10-26 19:22] VITALS: BP 117/81
[2018-10-27 01:07] VITALS: BP 111/75
[2018-10-27] MEDS: SODIUM CHLORIDE 0.9% 1,000 ML IV SCH (02:32)
[2018-10-27 05:42] LABS: CHLORIDE 108 mmol/L (98-107)
[2018-10-27 06:14] LABS: ALANINE AMINOTRANSFERASE 126 U/L (12-78); ALBUMIN 3.2 g/dL (3.4-5.0); ALKALINE PHOSPHATASE 117 U/L (45-117); ANION GAP 8 mmol/L (5-15); BILIRUBIN,TOTAL 0.9 mg/dL (0.2-1.0); CALCIUM 8.3 mg/dL (8.5-10.1); CREATININE 0.58 mg/dL (0.7-1.3); TOTAL PROTEIN 6.2 g/dL (6.4-8.2)
[2018-10-27 06:29] LABS: BASOPHILS # (AUTO) 0.03 x10^3/uL (0-0.1); BASOPHILS % (AUTO) 1 % (0-1); EOSINOPHILS # (AUTO) 0.14 x10^3/uL (0-0.4); EOSINOPHILS % (AUTO) 3 % (1-7); LYMPHOCYTES # (AUTO) 1.13 x10^3/uL (1-3.4); LYMPHOCYTES % (AUTO) 24 % (22-44); MD SCAN; MEAN CORPUSCULAR HEMOGLOBIN 32.1 pg (27.5-34.5); MEAN CORPUSCULAR HGB CONC 34.4 g/dL (33.2-36.2); MEAN CORPUSCULAR VOLUME 93.5 fL (81-97); MEAN PLATELET VOLUME 10.6 fL (7.4-10.4); MONOCYTES # (AUTO) 0.21 x10^3/uL (0.2-0.8); MONOCYTES % (AUTO) 4 % (2-9); NEUTROPHILS % (AUTO) 68 % (42-75); PLATELET COUNT 54 x10^3/uL (130-400); RED BLOOD COUNT 4.07 x10^6/uL (4.38-5.82); RED CELL DISTRIBUTION WIDTH 14.3 % (9.4-14.8)
[2018-10-27] MEDS: FAMOTIDINE 20 MG TABLET PO SCH (08:12)
[2018-10-27] MEDS: DIVALPROEX 125 MG TABLET.DR PO SCH (09:00)
[2018-10-27] MEDS: LEVETIRACETAM 500 MG TABLET PO SCH (09:00)
[2018-10-27 09:48] VITALS: BP 125/84
== END 2018-10-27 10:58 | disposition left against medical advice (07) | DRG 894 ==
LOC: ED 11:11 → EDIP 14:29 → 4WST 15:36
PROVIDERS: ADMIT Internal Medicine; ATTEND Internal Medicine
PROC: HZ2ZZZZ Detoxification Services for Substance Abuse Treatment (ICD-10-PCS; principal; 2018-10-25)
DX: F10.239 Alcohol dependence with withdrawal, unspecified (principal); E87.1 Hypo-osmolality and hyponatremia; R11.2 Nausea with vomiting, unspecified; D69.6 Thrombocytopenia, unspecified; E83.42 Hypomagnesemia; E86.0 Dehydration; E87.6 Hypokalemia; F12.90 Cannabis use, unspecified, uncomplicated; I10 Essential (primary) hypertension; G90.9 Disorder of the autonomic nervous system, unspecified; F13.90 Sedative, hypnotic, or anxiolytic use, unspecified, uncomplicated; F17.210 Nicotine dependence, cigarettes, uncomplicated; Y90.9 Presence of alcohol in blood, level not specified; Z91.19 Patient's noncompliance with other medical treatment and regimen
CPT/HCPCS: 36415; 99285; J3490; J7042; 80053; 80307; 82272; 83690; 83735; 85025; 87324; 96374; 96375; 96376; G0378; J1650; J2405; J3411; J3475; J3480; J2060; J7030

== ENCOUNTER 2018-10-30 19:01 | Emergency (ER) | payer MEDICAID ==
[~2018-10-30] VITALS: Ht 182.9 cm; Wt 70.0 kg
[~2018-10-30 19:01] MED LIST changes: -PROP10TA PO; +PROP10TA16 PO
[2018-10-30 19:03] VITALS: BP 132/93
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
[2018-10-30] MEDS ORDERED: SODIUM CHLORIDE FLUSH 10ML SYR IVF ONE (19:30)
--- NOTE | 2018-10-30 19:46 | NUR ---
RN TO BEDSIDE FOR EKG.
[2018-10-30 20:03] LABS: ANION GAP 12 mmol/L (5-15); CALCIUM 8.3 mg/dL (8.5-10.1); CHLORIDE 113 mmol/L (98-107)
[2018-10-30] MEDS ORDERED: LEVETIRACETAM 500 MG TABLET PO STA (20:03)
--- NOTE | 2018-10-30 20:08 | NUR ---
PT SITTING UP IN BED, BREATHNIG E/U, NO ACUTE DISTRESS APPARENT.
[2018-10-30 20:10] LABS: ALANINE AMINOTRANSFERASE 366 U/L (12-78); ALKALINE PHOSPHATASE 112 U/L (45-117); BILIRUBIN,TOTAL 0.5 mg/dL (0.2-1.0); CREATININE 0.72 mg/dL (0.7-1.3); TOTAL PROTEIN 7.7 g/dL (6.4-8.2)
[2018-10-30 20:11] LABS: BASOPHILS # (AUTO) 0.02 x10^3/uL (0-0.1); BASOPHILS % (AUTO) 0 % (0-1); EOSINOPHILS # (AUTO) 0.14 x10^3/uL (0-0.4); EOSINOPHILS % (AUTO) 2 % (1-7); LYMPHOCYTES # (AUTO) 2.45 x10^3/uL (1-3.4); LYMPHOCYTES % (AUTO) 34 % (22-44); MD NO; MEAN CORPUSCULAR HEMOGLOBIN 31.6 pg (27.5-34.5); MEAN CORPUSCULAR HGB CONC 33.1 g/dL (33.2-36.2); MEAN CORPUSCULAR VOLUME 95.3 fL (81-97); MEAN PLATELET VOLUME 9.9 fL (7.4-10.4); MONOCYTES # (AUTO) 0.55 x10^3/uL (0.2-0.8); MONOCYTES % (AUTO) 8 % (2-9); NEUTROPHILS # (AUTO) 4.06 x10^3/uL (1.8-6.8); NEUTROPHILS % (AUTO) 56 % (42-75); PLATELET COUNT 173 x10^3/uL (130-400); RED BLOOD COUNT 4.77 x10^6/uL (4.38-5.82); RED CELL DISTRIBUTION WIDTH 15.6 % (9.4-14.8)
[2018-10-30 20:12] LABS: HEMOGRAM NOTE RECHECKED
--- NOTE | 2018-10-30 20:46 | NUR ---
PT AT NURSES STATION DEMANDING TO LEAVE. AWARE. PT REFUSING TO SIGN AMA FORM. IV DC'D W/ TIP INTACT. PT HAS LEFT AMA AT THIS TIME. PT AMBULATES WITH STEADY GAIT OUT OF ED.
== END 2018-10-30 20:58 | disposition left against medical advice (07) ==
LOC: ED 19:32
DX: R56.9 Unspecified convulsions (principal); I10 Essential (primary) hypertension; Z91.040 Latex allergy status; Z91.013 Allergy to seafood; Z91.018 Allergy to other foods
CPT/HCPCS: 36415; 80053; 80307; 85025; 93005; 99284

== ENCOUNTER 2018-10-31 18:53 | Emergency (ER) | payer MEDICAID ==
[~2018-10-31] VITALS: Ht 182.9 cm; Wt 76.0 kg
[2018-10-31 19:28] VITALS: BP 115/73
--- NOTE | 2018-10-31 19:35 | NUR ---
PT REMOVED GOWN AND ALL VITALS MONITORS AND PUT HIS SWEATSHIRT ON, STATING, "I'M FUCKING FREEZING, WHY DO I HAVE TO HAVE ALL THIS SHIT ON". SITTER ABLE TO CALM PT DOWN, PT RELAXED BACK INTO GURNEY WITH EYES CLOSED.
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
== END 2018-10-31 19:51 | disposition left against medical advice (07) ==
LOC: ED 19:02
DX: F10.129 Alcohol abuse with intoxication, unspecified (principal)
CPT/HCPCS: 99283

== ENCOUNTER 2018-11-05 19:44 | Emergency (ER) | payer MEDICAID ==
--- NOTE | 2018-11-05 19:54 | NUR ---
BIB [facility]. Patient reports 3 seizures this week. Hx epilepsy and med non-compliance. EtoH abuse. Patient states he drank a bottle of whiskey and a few beers today. Placed on NIBP and pulse ox. ROBIN Marcelo. at bedside.
[2018-11-05] MEDS ORDERED: LORazepam 1MG TABLET PO ONE (20:00)
--- NOTE | 2018-11-05 20:22 | NUR ---
MD Gunnar at bedside.
[2018-11-05 20:27] LABS: MEAN CORPUSCULAR HGB CONC 34.1 g/dL (33.2-36.2); MEAN PLATELET VOLUME 8.8 fL (7.4-10.4); PLATELET COUNT 207 x10^3/uL (130-400); RED BLOOD COUNT 4.72 x10^6/uL (4.38-5.82); RED CELL DISTRIBUTION WIDTH 14.5 % (9.4-14.8)
--- NOTE | 2018-11-05 20:30 | NUR ---
Patient sleeping. RR = 16. Ativan held.
[2018-11-05 20:33] LABS: ALBUMIN 4.4 g/dL (3.4-5.0); ANION GAP 12 mmol/L (5-15); CALCIUM 8.5 mg/dL (8.5-10.1); CHLORIDE 103 mmol/L (98-107)
[2018-11-05 20:41] LABS: MD YES
[2018-11-05 20:44] LABS: <PLATELET ESTIMATE> ADEQUATE; <PLT MORPHOLOGY> NORMAL PLT MORPH; <RBC MORPHOLOGY> NORMAL; BASOS#(MANUAL) 0.04 x10^3/uL (0-0.1); BASOS% (MANUAL) 1 % (0-1); EOS#(MANUAL) 0.09 x10^3/uL (0.0-0.4); EOS% (MANUAL) 2 % (1-7); LYMPH#(MANUAL) 2.07 x10^3/uL (1-3.4); LYMPHS% (MANUAL) 47 % (22-44); MONOS#(MANUAL) 0.44 x10^3/uL (0.3-2.7); MONOS% (MANUAL) 10 % (2-9); REACTIVE LYMPHS # (MANUAL) 0.09 x10^3/uL (0-0); REACTIVE LYMPHS % (MANUAL) 2 % (0-0); SEG#(MANUAL) 1.67 x10^3/uL (1.8-6.8); SEGS% (MANUAL) 38 % (42-75)
[2018-11-05 21:20] VITALS: BP 138/97
--- NOTE | 2018-11-05 21:20 | NUR ---
VSS. Arousable to verbal command. A&Ox4.
--- NOTE | 2018-11-05 21:25 | NUR ---
Ambulatory with a steady gait.
--- NOTE | 2018-11-05 21:32 | NUR ---
Patient eloped prior to DC instructions.
== END 2018-11-05 21:32 | disposition left against medical advice (07) ==
LOC: ED 21:26
DX: F10.220 Alcohol dependence with intoxication, uncomplicated (principal); G40.909 Epilepsy, unspecified, not intractable, without status epilepticus; I10 Essential (primary) hypertension
CPT/HCPCS: 36415; 80048; 80307; 82040; 85025; 99283

== ENCOUNTER 2018-11-22 15:08 | Emergency (ER) | payer MEDICAID ==
[~2018-11-22] VITALS: Ht 185.4 cm; Wt 75.0 kg
[2018-11-22 15:21] VITALS: BP 136/75
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
--- NOTE | 2018-11-22 15:25 | NUR ---
Pt up to bedside with urinal per request with one person assist.
--- NOTE | 2018-11-22 16:09 | NUR ---
Pt found walking down hallway with steady gait, pt states "Im going to see my girlfriend, she is a patient here too" Pt aware he is not to be wandering around halls until discharge, pt states "then just discharge me" MD aware, pt up for discharge.
--- NOTE | 2018-11-22 16:15 | NUR ---
Pt to be discharged, pt refuses to wait for DC instructions
== END 2018-11-22 16:17 | disposition home or self-care (01) ==
LOC: ED 16:11
DX: F10.229 Alcohol dependence with intoxication, unspecified (principal); I10 Essential (primary) hypertension; F17.200 Nicotine dependence, unspecified, uncomplicated; Y90.9 Presence of alcohol in blood, level not specified
CPT/HCPCS: 99283

== ENCOUNTER 2018-12-25 22:45 | Emergency (ER) | payer MEDICAID ==
[~2018-12-25] VITALS: Ht 182.9 cm; Wt 67.9 kg
[2018-12-25] MEDS ORDERED: KETOROLAC 30 MG/1 ML IM ONE (23:30)
[2018-12-25] MEDS ORDERED: KETOROLAC 30 MG/1 ML ONE (23:36)
[2018-12-25 23:44] LABS: ALANINE AMINOTRANSFERASE 61 U/L (12-78); ALBUMIN 4.4 g/dL (3.4-5.0); ANION GAP 6 mmol/L (5-15); C-REACTIVE PROTEIN, QUANT 0.47 mg/dL (0.02-0.49); CALCIUM 9.4 mg/dL (8.5-10.1); CHLORIDE 100 mmol/L (98-107); CREATININE 0.84 mg/dL (0.7-1.3)
[2018-12-25 23:47] LABS: ALKALINE PHOSPHATASE 68 U/L (45-117); BILIRUBIN,TOTAL 0.9 mg/dL (0.2-1.0); TOTAL PROTEIN 7.8 g/dL (6.4-8.2)
[2018-12-25 23:53] LABS: MD SCAN; MEAN CORPUSCULAR HEMOGLOBIN 32.2 pg (27.5-34.5); MEAN CORPUSCULAR HGB CONC 34.6 g/dL (33.2-36.2); MEAN CORPUSCULAR VOLUME 93.2 fL (81-97); MEAN PLATELET VOLUME 9.9 fL (7.4-10.4); PLATELET COUNT 71 x10^3/uL (130-400); RED BLOOD COUNT 4.46 x10^6/uL (4.38-5.82); RED CELL DISTRIBUTION WIDTH 14.2 % (9.4-14.8)
[2018-12-25 23:54] LABS: BASOPHILS # (AUTO) 0.03 x10^3/uL (0-0.1); BASOPHILS % (AUTO) 0 % (0-1); EOSINOPHILS # (AUTO) 0.11 x10^3/uL (0-0.4); EOSINOPHILS % (AUTO) 2 % (1-7); HCT (SEDRATE) 41.6 % (39.2-51.8); LYMPHOCYTES # (AUTO) 1.73 x10^3/uL (1-3.4); LYMPHOCYTES % (AUTO) 25 % (22-44); MONOCYTES # (AUTO) 0.39 x10^3/uL (0.2-0.8); MONOCYTES % (AUTO) 6 % (2-9); NEUTROPHILS % (AUTO) 68 % (42-75)
[2018-12-26] MEDS ORDERED: POTASSIUM CHLORIDE 20 MEQ TAB.ER.PRT ONE (00:11)
[2018-12-26] MEDS ORDERED: DEXAMETHASONE 4 MG TABLET ONE (00:12)
[2018-12-26 00:18] VITALS: BP 135/89
--- NOTE | 2018-12-26 00:18 | NUR ---
Patient given discharge instructions and they have confirmed that they understand the instructions. Patient ambulatory with steady gait.
[2018-12-26] MEDS ORDERED: DEXAMETHASONE 4 MG TABLET PO ONE (00:30)
[2018-12-26] MEDS ORDERED: POTASSIUM CHLORIDE 20 MEQ TAB.ER.PRT PO ONE (00:30)
== END 2018-12-26 00:20 | disposition home or self-care (01) ==
LOC: ED 12-26
DX: E87.6 Hypokalemia (principal); M54.9 Dorsalgia, unspecified; M79.10 Myalgia, unspecified site; G40.909 Epilepsy, unspecified, not intractable, without status epilepticus; I10 Essential (primary) hypertension; F17.200 Nicotine dependence, unspecified, uncomplicated
CPT/HCPCS: 36415; 80053; 85025; 85651; 86140; 96372; 99283; J1885

== ENCOUNTER 2019-04-05 17:33 | Emergency (ER) | payer MEDICAID ==
[~2019-04-05] VITALS: Ht 182.9 cm; Wt 64.1 kg
--- NOTE | 2019-04-05 18:00 | NUR ---
Tech in room obtaining EKG when pt stopped responding to staff and began staring into space. This nurse entered room to find patient shaking lightly through lower limbs, gradually increasing in severity. Pt breathing normally, did not lose control of bladder. No post ictal phase. No notable change to vitals signs noted. ERP notified.
[2019-04-05 18:07] LABS: BASOPHILS # (AUTO) 0.04 x10^3/uL (0-0.1); BASOPHILS % (AUTO) 1 % (0-1); EOSINOPHILS # (AUTO) 0.04 x10^3/uL (0-0.4); EOSINOPHILS % (AUTO) 1 % (1-7); LYMPHOCYTES # (AUTO) 2.13 x10^3/uL (1-3.4); LYMPHOCYTES % (AUTO) 41 % (22-44); MD NO; MEAN CORPUSCULAR HEMOGLOBIN 32.4 pg (27.5-34.5); MEAN CORPUSCULAR VOLUME 95.2 fL (81-97); MEAN PLATELET VOLUME 7.8 fL (7.4-10.4); MONOCYTES # (AUTO) 0.99 x10^3/uL (0.2-0.8); MONOCYTES % (AUTO) 19 % (2-9); NEUTROPHILS # (AUTO) 2.04 x10^3/uL (1.8-6.8); NEUTROPHILS % (AUTO) 39 % (42-75); PLATELET COUNT 302 x10^3/uL (130-400); RED BLOOD COUNT 4.64 x10^6/uL (4.38-5.82); RED CELL DISTRIBUTION WIDTH 13.9 % (9.4-14.8)
[2019-04-05 18:17] LABS: ALANINE AMINOTRANSFERASE 128 U/L (12-78); ALBUMIN 4.4 g/dL (3.4-5.0); ANION GAP 16 mmol/L (5-15); CALCIUM 8.9 mg/dL (8.5-10.1); CHLORIDE 101 mmol/L (98-107); CREATININE 0.76 mg/dL (0.7-1.3)
[2019-04-05 18:22] LABS: ALKALINE PHOSPHATASE 66 U/L (45-117); BILIRUBIN,TOTAL 0.5 mg/dL (0.2-1.0); TOTAL PROTEIN 8.2 g/dL (6.4-8.2)
--- NOTE | 2019-04-05 18:30 | NUR ---
Pt up in hallway, unsteady on feet. Assisted back to bed, rails still up and padded, bed tilted approx 20* in trendelenburg. Pt reminded to stay in bed, electroplating technician posted at bedside to sit for safety. ERP and charge nurse notified.
--- NOTE | 2019-04-05 18:54 | NUR ---
report received from randy monique.
--- NOTE | 2019-04-05 19:24 | NUR ---
pt is intoxicated and needs to be continuously reeducated on not getting out of bed. sitter monitoring from [facility] for safety.
--- NOTE | 2019-04-05 21:43 | NUR ---
HIS GAIT IS UNSTEADY STILL. SITTER MONITORING FROM [facility].
--- NOTE | 2019-04-05 22:19 | NUR ---
Marguerite lynnvashti in ED - 04/05/19 at 2222 by DORIE PT RESTING IN [facility]. PT'S SPO2 IS 89% NOW, BUT PT IS UNCOOPERATIVE AND PT DOESN'T WEAR OXY AT THIS TIME.
--- NOTE | 2019-04-05 22:22 | NUR ---
PT RESTING IN [facility]. PT'S SPO2 IS 89% NOW, BUT PT IS UNCOOPERATIVE AND PT DOESN'T WANT TO WEAR OXY AT THIS TIME.
--- NOTE | 2019-04-05 23:10 | NUR ---
PT SLEEPING IN [facility]. BP/SPO2 MONITORS IN PLACE. CALL LIGHT WITHIN REACH. RESPS EVEN AND UNLABORED. SITTER MONITORING FROM [facility] FOR SAFETY.
[2019-04-05 23:51] VITALS: BP 106/70
--- NOTE | 2019-04-05 23:56 | NUR ---
PT SLEEPING IN [facility]. RESPS EVEN AND UNLABORED. SITTER MONITORING FROM [facility] FOR SAFETY.
--- NOTE | 2019-04-06 00:36 | NUR ---
PT IS ABLE TO AMB AT THIS TIME.
--- NOTE | 2019-04-06 00:38 | NUR ---
PT AMB TO DC WITH STEADY GAIT. NO ACUTE DISTRESS AT DC.
== END 2019-04-06 00:39 | disposition home or self-care (01) ==
LOC: ED 18:16
DX: F10.220 Alcohol dependence with intoxication, uncomplicated (principal); Z72.9 Problem related to lifestyle, unspecified; I10 Essential (primary) hypertension; G40.909 Epilepsy, unspecified, not intractable, without status epilepticus
CPT/HCPCS: 36415; 80053; 80307; 85025; 99283

== ENCOUNTER 2019-08-02 08:12 | Emergency (ER) | payer MEDICAID ==
[~2019-08-02] VITALS: Ht 182.9 cm; Wt 75.0 kg
[2019-08-02] MEDS ORDERED: SODIUM CHLORIDE FLUSH 10ML SYR IVF ONE (08:30)
[2019-08-02] MEDS ORDERED: METOCLOPRAMIDE 5 MG/ML, 2ML IVPush ONE (08:30)
[2019-08-02] MEDS ORDERED: LORazepam 2 MG/ML, 1ML IVPush ONE ×2 (08:30→11:00)
[2019-08-02] MEDS ORDERED: SODIUM CHLORIDE 0.9% 1,000ML IVBOLUS ONE ×2 (08:30→10:00)
[2019-08-02] MEDS ORDERED: THIAMINE 100 MG in SODIUM CHLORIDE 0.9% 50 ML IVPB ONE (08:30)
[2019-08-02] MEDS ORDERED: METOCLOPRAMIDE 5 MG/ML, 2ML ONE (08:31)
[2019-08-02] MEDS ORDERED: LORazepam 2 MG/ML, 1ML ONE ×2 (08:32→10:54)
[2019-08-02] MEDS ORDERED: KEPPRA (09:04)
[2019-08-02] MEDS ORDERED: MERTAZIPINE (09:04)
[2019-08-02] MEDS ORDERED: GABAPENTIN (09:04)
[2019-08-02] MEDS ORDERED: DEPAKOTE (09:04)
[2019-08-02] MEDS ORDERED: AMBIEN (09:04)
[2019-08-02] MEDS ORDERED: MIRTAZAPINE (09:05)
--- NOTE | 2019-08-02 09:05 | NUR ---
PT BIBA FOR ETOH WITHDRAWAL. PT STATES HE WON SOME MONEY AND "WENT ON A BINGER." PT STATES HE WAS SOBER UNTIL LAST MONDAY (6 DAYS AGO) AND HAS HAD AT LEAST "A COUPLE OF GALLONS OF VODKA OR WHATEVER I HAD AT THE [place]" EVERY DAY SINCE THEN. PIV ESTABLISED DISPLAY MECHANIC AND 1L NS AND 4MG ZOFRAN ADMINISTERED. PT PRESENTS TREMULOUS AND ACTIVELY VOMITING. ROBIN SALDANA TO BS FOR ASSESSMENT. ORDERS RECEIVED. PT MEDICATED PER DEC AND IVF BOLUS STARTED. PT RESTING IN ROOM AT THIS TIME. ICE CHIPS PROVIDED WTIH OK FROM ROBIN SALDANA. PT DECLINES GOWN AT THIS TIME. PT CONNECTED TO ALL MONITORS. ALL VSS ON RA. PT ALSO STATES HX OF EPILEPSY AND SEIZURES WITH ETOH WITHDRAWAL. PT CANNOT REMEMBER LAST TIME HE TOOK MEDICATIONS, "A FEW DAYS AGO" PT KNOWS ALL PRESCRIBED MEDICATIONS, BUT DOES NOT KNOW DOSES. MED REC UPDATED ACCORDINGLY. PT RESTING IN ROOM. NO NEEDS EXPRESSED.
--- NOTE | 2019-08-02 09:18 | NUR ---
REPORT FROM KAREN. PT IN BED, IV INFUSING WITHOUT ISSUE. LAB AT BEDSIDE.
[2019-08-02 09:34] LABS: ALANINE AMINOTRANSFERASE 28 U/L (12-78); ALBUMIN 3.9 g/dL (3.4-5.0); CALCIUM 7.7 mg/dL (8.5-10.1); CHLORIDE 103 mmol/L (98-107); CREATININE 0.76 mg/dL (0.7-1.3)
[2019-08-02 09:36] LABS: ALKALINE PHOSPHATASE 63 U/L (45-117); BILIRUBIN,TOTAL 0.8 mg/dL (0.2-1.0); TOTAL PROTEIN 7.4 g/dL (6.4-8.2)
[2019-08-02 09:44] LABS: ANION GAP 16 mmol/L (5-15)
--- NOTE | 2019-08-02 09:47 | NUR ---
PT PROVIDED WITH ICE CHIPS PER REQUEST, WITH VERBAL ERP CONSENT. IV FLUIDS FINISHED AT THIS TIME. PT DENIES ANY FURTHER NEEDS OR CONCERNS.
[2019-08-02 09:57] LABS: BASOPHILS # (AUTO) 0.01 x10^3/uL (0-0.1); BASOPHILS % (AUTO) 0 % (0-1); EOSINOPHILS % (AUTO) 0 % (1-7); LYMPHOCYTES # (AUTO) 0.64 x10^3/uL (1-3.4); LYMPHOCYTES % (AUTO) 5 % (22-44); MD SCAN; MEAN CORPUSCULAR HEMOGLOBIN 30.7 pg (27.5-34.5); MEAN CORPUSCULAR HGB CONC 33.8 g/dL (33.2-36.2); MEAN CORPUSCULAR VOLUME 90.8 fL (81-97); MEAN PLATELET VOLUME 8.8 fL (7.4-10.4); MONOCYTES # (AUTO) 0.46 x10^3/uL (0.2-0.8); MONOCYTES % (AUTO) 4 % (2-9); NEUTROPHILS # (AUTO) 11.13 x10^3/uL (1.8-6.8); NEUTROPHILS % (AUTO) 91 % (42-75); PLATELET COUNT 95 x10^3/uL (130-400); RED BLOOD COUNT 4.94 x10^6/uL (4.38-5.82); RED CELL DISTRIBUTION WIDTH 13.4 % (9.4-14.8)
[2019-08-02] MEDS ORDERED: PROMETHAZINE 25 MG/ML, 1ML ONE (10:53)
[2019-08-02] MEDS ORDERED: PROMETHAZINE 25 MG/ML, 1ML IM ONE (11:00)
[2019-08-02 12:08] VITALS: BP 110/66
== END 2019-08-02 12:10 | disposition home or self-care (01) ==
LOC: ED 08:57
DX: F10.239 Alcohol dependence with withdrawal, unspecified (principal); R45.4 Irritability and anger; F41.9 Anxiety disorder, unspecified; I10 Essential (primary) hypertension; G40.909 Epilepsy, unspecified, not intractable, without status epilepticus; Z72.9 Problem related to lifestyle, unspecified
CPT/HCPCS: 36415; 80053; 83690; 85025; 96365; 96372; 96375; 96376; 99283; J2060; J2550; J2765; J3411; J7030

== ENCOUNTER 2019-08-16 13:01 | Emergency (ER) | payer MEDICAID ==
[~2019-08-16] VITALS: Ht 182.9 cm; Wt 70.9 kg
[~2019-08-16 13:01] MED LIST changes: +AMBIEN; +DEPAKOTE; +GABAPENTIN; +KEPPRA; +MERTAZIPINE; +MIRTAZAPINE
[2019-08-16 13:32] VITALS: BP 117/69
--- NOTE | 2019-08-16 14:44 | NUR ---
KAILA RN: DR LEAVITT HAS SEEN PATIENT. PATIENT IS USING RESTROOM
--- NOTE | 2019-08-16 14:58 | NUR ---
PT HAS HAD CO OF INSOMNIA AND NOT BEING ABLE TO SLEEP. RECENT MED CHANGES
--- NOTE | 2019-08-16 15:09 | NUR ---
Patient/Caregiver given discharge instructions and they have confirmed that they understand the instructions. Patient ambulatory with steady gait.
== END 2019-08-16 15:10 | disposition home or self-care (01) ==
LOC: ED 15:00
DX: G47.00 Insomnia, unspecified (principal); G40.909 Epilepsy, unspecified, not intractable, without status epilepticus; I10 Essential (primary) hypertension
CPT/HCPCS: 99283

== ENCOUNTER 2019-10-26 21:53 | Emergency (ER) | payer MEDICAID ==
[~2019-10-26] VITALS: Ht 182.9 cm; Wt 67.9 kg
[~2019-10-26 21:53] MED LIST changes: +OMEP40CA42 PO; -OMEP40CA6 PO
--- NOTE | 2019-10-26 21:59 | NUR ---
patient refused EKG. "my heart is fine".
--- NOTE | 2019-10-26 22:04 | NUR ---
PT REFUSED EKG, VS, AND LAB WORK. PT SIGNED OUT AMA. PT AMBULATED WITH STEADY GAIT OUT OF HOSPITAL. MD GARCIA.
[2019-10-26 22:13] VITALS: BP 118/82
[2019-10-26] MEDS ORDERED: ONDANSETRON 2MG/ML, 2ML IVPush ONE (22:30)
[2019-10-26] MEDS ORDERED: SODIUM CHLORIDE 0.9% 1,000ML IVBOLUS ONE (22:30)
[2019-10-26] MEDS ORDERED: SODIUM CHLORIDE FLUSH 10ML SYR IVF ONE (22:30)
[2019-10-26] MEDS ORDERED: LORazepam 2 MG/ML, 1ML IVPush ONE (22:30)
[2019-10-26] MEDS ORDERED: ONDANSETRON 2MG/ML, 2ML ONE (22:47)
[2019-10-26] MEDS ORDERED: LORazepam 2 MG/ML, 1ML ONE (22:48)
[2019-10-26 23:02] LABS: BASOPHILS # (AUTO) 0.06 x10^3/uL (0-0.1); BASOPHILS % (AUTO) 0 % (0-1); EOSINOPHILS # (AUTO) 0.02 x10^3/uL (0-0.4); EOSINOPHILS % (AUTO) 0 % (1-7); LYMPHOCYTES # (AUTO) 2.48 x10^3/uL (1-3.4); LYMPHOCYTES % (AUTO) 17 % (22-44); MD NO; MEAN CORPUSCULAR HEMOGLOBIN 29.7 pg (27.5-34.5); MEAN CORPUSCULAR HGB CONC 33.1 g/dL (33.2-36.2); MEAN CORPUSCULAR VOLUME 89.8 fL (81-97); MEAN PLATELET VOLUME 8.9 fL (7.4-10.4); MONOCYTES # (AUTO) 0.67 x10^3/uL (0.2-0.8); MONOCYTES % (AUTO) 5 % (2-9); NEUTROPHILS # (AUTO) 11.44 x10^3/uL (1.8-6.8); NEUTROPHILS % (AUTO) 78 % (42-75); PLATELET COUNT 286 x10^3/uL (130-400); RED BLOOD COUNT 5.64 x10^6/uL (4.38-5.82); RED CELL DISTRIBUTION WIDTH 12.7 % (9.4-14.8)
[2019-10-26 23:08] LABS: ALBUMIN 4.4 g/dL (3.4-5.0); ANION GAP 13 mmol/L (5-15); CALCIUM 9.1 mg/dL (8.5-10.1); CHLORIDE 103 mmol/L (98-107)
[2019-10-26 23:13] LABS: CREATININE 0.94 mg/dL (0.7-1.3)
== END 2019-10-26 23:50 | disposition home or self-care (01) ==
LOC: ED 23:37
DX: G40.309 Generalized idiopathic epilepsy and epileptic syndromes, not intractable, without status epilepticus (principal); R11.2 Nausea with vomiting, unspecified; F10.220 Alcohol dependence with intoxication, uncomplicated; I10 Essential (primary) hypertension; Y90.0 Blood alcohol level of less than 20 mg/100 ml
CPT/HCPCS: 36415; 80048; 80307; 82040; 85025; 93005; 96374; 96375; 99284; J2060; J2405; J7030

== ENCOUNTER 2019-10-28 04:33 | Emergency (ER) | payer MEDICAID ==
[~2019-10-28] VITALS: Ht 182.9 cm; Wt 68.0 kg
[2019-10-28 04:41] VITALS: BP 114/82
--- NOTE | 2019-10-28 04:49 | NUR ---
Patient brought to room by EMS. Received report from stock repairer that patient reported a seizure the previous day had been checked out and worked up in ER and patient had been discharged. Patient then drank heavily after discharge and now reports not feeling well. That "his brain isn't clicking." When asked by RN about patients history, reports having been to a neurologist and had been medically cleared for seizures. Awaiting assessment
[2019-10-28] MEDS ORDERED: FAMOTIDINE 20 MG/2 ML IV ONE (05:00)
[2019-10-28] MEDS ORDERED: LORazepam 2 MG/ML, 1ML IVPush ONE (05:00)
[2019-10-28] MEDS ORDERED: ONDANSETRON 2MG/ML, 2ML IVPush ONE (05:00)
[2019-10-28] MEDS ORDERED: SODIUM CHLORIDE FLUSH 10ML SYR IVF ONE (05:00)
[2019-10-28] MEDS ORDERED: ONDANSETRON 2MG/ML, 2ML ONE (05:13)
[2019-10-28] MEDS ORDERED: LORazepam 2 MG/ML, 1ML ONE (05:14)
[2019-10-28] MEDS ORDERED: FAMOTIDINE 20 MG/2 ML ONE (05:14)
--- NOTE | 2019-10-28 05:25 | NUR ---
Midlevel provider to bedside. Patient assessed and RN returned to adminster medications ordered ([facility] Patient educated on medications. Tire Beader Maker to bedside. Patient reeducated on fall risk due to risk associated with medications. Awaiting for results
[2019-10-28 05:43] LABS: BASOPHILS # (AUTO) 0.03 x10^3/uL (0-0.1); BASOPHILS % (AUTO) 0 % (0-1); EOSINOPHILS # (AUTO) 0.04 x10^3/uL (0-0.4); EOSINOPHILS % (AUTO) 1 % (1-7); LYMPHOCYTES # (AUTO) 2.62 x10^3/uL (1-3.4); LYMPHOCYTES % (AUTO) 31 % (22-44); MD NO; MEAN CORPUSCULAR HEMOGLOBIN 30.2 pg (27.5-34.5); MEAN CORPUSCULAR HGB CONC 33.6 g/dL (33.2-36.2); MEAN CORPUSCULAR VOLUME 89.7 fL (81-97); MEAN PLATELET VOLUME 8.9 fL (7.4-10.4); MONOCYTES # (AUTO) 0.47 x10^3/uL (0.2-0.8); MONOCYTES % (AUTO) 6 % (2-9); NEUTROPHILS % (AUTO) 63 % (42-75); PLATELET COUNT 243 x10^3/uL (130-400); RED BLOOD COUNT 5.18 x10^6/uL (4.38-5.82)
[2019-10-28 05:48] LABS: ALANINE AMINOTRANSFERASE 22 U/L (12-78); ALBUMIN 3.9 g/dL (3.4-5.0); ANION GAP 11 mmol/L (5-15); CALCIUM 8.7 mg/dL (8.5-10.1); CHLORIDE 100 mmol/L (98-107)
[2019-10-28 05:51] LABS: ALKALINE PHOSPHATASE 72 U/L (45-117); BILIRUBIN,TOTAL 0.5 mg/dL (0.2-1.0); CREATININE 0.78 mg/dL (0.7-1.3); TOTAL PROTEIN 7.3 g/dL (6.4-8.2)
--- NOTE | 2019-10-28 07:24 | NUR ---
Patient/Caregiver given discharge instructions and they have confirmed that they understand the instructions. Patient ambulatory with steady gait. PIV REMOVED WITH TIP INTACT.
== END 2019-10-28 07:26 | disposition home or self-care (01) ==
LOC: ED 05:30
DX: K29.20 Alcoholic gastritis without bleeding (principal); F10.10 Alcohol abuse, uncomplicated; I10 Essential (primary) hypertension; Y90.0 Blood alcohol level of less than 20 mg/100 ml; R11.2 Nausea with vomiting, unspecified; Z76.0 Encounter for issue of repeat prescription
CPT/HCPCS: 36415; 80053; 80164; 83690; 85025; 96374; 96375; 99283; J2060; J2405; J3490

== ENCOUNTER 2020-05-23 15:09 | Emergency (ER) | payer MEDICAID ==
[~2020-05-23] VITALS: Ht 175.3 cm; Wt 84.1 kg
[2020-05-23 15:27] VITALS: BP 137/97
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
[2020-05-23 16:11] LABS: ALBUMIN 4.2 g/dL (3.4-5.0); ANION GAP 15 mmol/L (5-15); CALCIUM 8.9 mg/dL (8.5-10.1); CHLORIDE 101 mmol/L (98-107); CREATININE 0.83 mg/dL (0.7-1.3); SALICYLATE LEVEL 3.1 mg/dL (2.8-20.0)
[2020-05-23 16:22] LABS: ALANINE AMINOTRANSFERASE 75 U/L (12-78); ALKALINE PHOSPHATASE 91 U/L (45-117); BILIRUBIN,TOTAL 0.5 mg/dL (0.2-1.0); TOTAL PROTEIN 8.5 g/dL (6.4-8.2)
--- NOTE | 2020-05-23 16:30 | NUR ---
PT RESTING ON CINTHYA. PHILLIP. SITTER REMAINS AT BEDSIDE. ROOM REMAINS SECURE.
[2020-05-23 17:12] LABS: BASOPHILS # (AUTO) 0.02 x10^3/uL (0-0.1); BASOPHILS % (AUTO) 0 % (0-1); EOSINOPHILS # (AUTO) 0.05 x10^3/uL (0-0.4); EOSINOPHILS % (AUTO) 1 % (1-7); LYMPHOCYTES # (AUTO) 2.92 x10^3/uL (1-3.4); LYMPHOCYTES % (AUTO) 37 % (22-44); MD NO; MEAN CORPUSCULAR HEMOGLOBIN 28.9 pg (27.5-34.5); MEAN CORPUSCULAR HGB CONC 32.7 g/dL (33.2-36.2); MEAN CORPUSCULAR VOLUME 88.4 fL (81-97); MONOCYTES # (AUTO) 0.62 x10^3/uL (0.2-0.8); MONOCYTES % (AUTO) 8 % (2-9); NEUTROPHILS # (AUTO) 4.31 x10^3/uL (1.8-6.8); NEUTROPHILS % (AUTO) 54 % (42-75); PLATELET COUNT 227 x10^3/uL (130-400); RED BLOOD COUNT 5.96 x10^6/uL (4.38-5.82); RED CELL DISTRIBUTION WIDTH 14.7 % (9.4-14.8)
[2020-05-23] MEDS ORDERED: ONDANSETRON ODT 4 MG PO ONE (17:30)
[2020-05-23] MEDS ORDERED: LEVETIRACETAM 500 MG TABLET PO SCH (17:30)
[2020-05-23] MEDS ORDERED: ONDANSETRON ODT 4 MG ONE (17:31)
[2020-05-23] MEDS ORDERED: LEVETIRACETAM 500 MG TABLET ONE (17:31)
[2020-05-23 17:40] LABS: AMPHETAMINE SCREEN, URINE Negative (Negative); BARBITURATE SCREEN, URINE Negative (Negative); BENZODIAZEPINE SCREEN, URINE Negative (Negative); CANNABINOID SCREEN, URINE Positive (Negative); COCAINE SCREEN, URINE Negative (Negative); METHADONE SCREEN, URINE Negative (Negative); OPIATE SCREEN, URINE Negative (Negative)
--- NOTE | 2020-05-23 17:59 | NUR ---
PT RESTING ON CINTHYA. PHILLIP. SITTER REMAINS AT BEDSIDE. ROOM REMAINS SECURE.
--- NOTE | 2020-05-23 18:16 | NUR ---
PT RESTING ON CINTHYA. PHILLIP. SITTER REMAINS AT BEDSIDE. ROOM REMAINS SECURE.
--- NOTE | 2020-05-23 18:23 | NUR ---
REPORT GIVEN TO CAROL LONDON. PT MOVED TO ROOM 1.
--- NOTE | 2020-05-23 18:24 | NUR ---
REPORT RECEIVED FROM CAROL MAGALLON. PLAN OF CARE DISCUSSED. PATIENT TO ROOM 1, SITTER AT DOOR, PATIENT IN HOSPITAL BED, ROOM SECURED.
--- NOTE | 2020-05-23 18:43 | NUR ---
ROBIN RAYMUNDO TO ROOM TO RE-EVALUATE PATIENT DUE TO PATIENT STATING HE WANTS TO LEAVE AND GO TO [facility]
--- NOTE | 2020-05-23 18:46 | NUR ---
PER BREANNE, PA PATIENT HAS BEEN MEDICALLY CLEARED TO BE DISCHARGED AND GO TO [facility] WALK-IN PATIENT. CALLED [facility], THEY STATE THEY HAVE BEDS AVAILABLE.
--- NOTE | 2020-05-23 18:51 | NUR ---
REPORT FROM SURYA MEDINA ASSUMING CARE OF PT AT THIS TIME
--- NOTE | 2020-05-23 19:40 | NUR ---
PT DC WITH CAB VOUCHER TO [facility]. FACILITY AWARE PT IS ON THE WAY AND STS THEY DO HAVE BEDS AVAILABLE. PT AMB TO D/C DESK NADN. PT A/O4 AWARE AND AGREEABLE TO DC PLAN.
== END 2020-05-23 19:43 | disposition home or self-care (01) ==
LOC: ED 19:36
DX: F33.9 Major depressive disorder, recurrent, unspecified (principal); F10.229 Alcohol dependence with intoxication, unspecified; F41.9 Anxiety disorder, unspecified; R45.851 Suicidal ideations; I10 Essential (primary) hypertension; G40.909 Epilepsy, unspecified, not intractable, without status epilepticus; Y90.0 Blood alcohol level of less than 20 mg/100 ml
CPT/HCPCS: 36415; 80053; 80307; 85025; 99283; Q0162

== ENCOUNTER 2020-06-03 12:48 | Emergency (ER) | payer MEDICAID ==
[~2020-06-03] VITALS: Ht 182.9 cm; Wt 72.6 kg
[2020-06-03] MEDS ORDERED: SODIUM CHLORIDE 0.9% 1,000ML IVBOLUS ONE (13:30)
[2020-06-03] MEDS ORDERED: THIAMINE 100MG TABLET PO ONE (13:30)
[2020-06-03] MEDS ORDERED: SODIUM CHLORIDE FLUSH 10ML SYR IVF ONE (13:30)
[2020-06-03] MEDS ORDERED: ONDANSETRON 2MG/ML, 2ML IVPush ONE (13:30)
[2020-06-03] MEDS ORDERED: THIAMINE 100MG TABLET ONE (13:39)
[2020-06-03] MEDS ORDERED: LORazepam 2 MG/ML, 1ML ONE ×2 (13:39→14:46)
[2020-06-03] MEDS ORDERED: ONDANSETRON 2MG/ML, 2ML ONE (13:39)
[2020-06-03] MEDS: LORazepam 2 MG/ML, 1ML IVPush PRN ×2 (13:42→14:49)
--- NOTE | 2020-06-03 13:50 | NUR ---
PT DETOXING FROM ETOH. PT TREMULOUS. HX OF SEIZURES. SEIZURE PRECAUTIONS IN PLACE. MEDICATED PER ORDERS, IV ESTABLSIHED.
[2020-06-03 14:09] LABS: BASOPHILS # (AUTO) 0.03 x10^3/uL (0-0.1); BASOPHILS % (AUTO) 0 % (0-1); EOSINOPHILS # (AUTO) 0.03 x10^3/uL (0-0.4); EOSINOPHILS % (AUTO) 1 % (1-7); LYMPHOCYTES # (AUTO) 0.98 x10^3/uL (1-3.4); LYMPHOCYTES % (AUTO) 16 % (22-44); MD NO; MEAN CORPUSCULAR HEMOGLOBIN 29.6 pg (27.5-34.5); MEAN CORPUSCULAR HGB CONC 33.3 g/dL (33.2-36.2); MEAN CORPUSCULAR VOLUME 88.9 fL (81-97); MEAN PLATELET VOLUME 8.5 fL (7.4-10.4); MONOCYTES # (AUTO) 0.76 x10^3/uL (0.2-0.8); MONOCYTES % (AUTO) 13 % (2-9); NEUTROPHILS # (AUTO) 4.25 x10^3/uL (1.8-6.8); NEUTROPHILS % (AUTO) 70 % (42-75); PLATELET COUNT 155 x10^3/uL (130-400); RED BLOOD COUNT 5.44 x10^6/uL (4.38-5.82); RED CELL DISTRIBUTION WIDTH 15.7 % (9.4-14.8)
[2020-06-03] MEDS ORDERED: LEVETIRACETAM 1,000 MG in SODIUM CHLORIDE 0.9% 100 ML IV ONE (14:20)
[2020-06-03 14:22] LABS: ALANINE AMINOTRANSFERASE 155 U/L (12-78); ALBUMIN 4.5 g/dL (3.4-5.0); ANION GAP 15 mmol/L (5-15); CALCIUM 9.1 mg/dL (8.5-10.1); CHLORIDE 102 mmol/L (98-107); CREATININE 0.83 mg/dL (0.7-1.3)
[2020-06-03 14:24] LABS: ALKALINE PHOSPHATASE 83 U/L (45-117); BILIRUBIN,TOTAL 0.6 mg/dL (0.2-1.0); TOTAL PROTEIN 8.6 g/dL (6.4-8.2)
[2020-06-03] MEDS ORDERED: SODIUM CHLORIDE 0.9% 1,000 ML IV ONE (14:53)
--- NOTE | 2020-06-03 15:02 | NUR ---
MEDICATED PER ORDERS. PT STILL TREMULOUS. HR 110
[2020-06-03 16:23] VITALS: BP 140/85
--- NOTE | 2020-06-03 16:26 | NUR ---
PT RESTING, NOT AT TREMULOUS. PT STATES HE HIS FEELING BETTER. HR 95
--- NOTE | 2020-06-03 16:59 | NUR ---
Patient/Caregiver given discharge instructions and they have confirmed that they understand the instructions. Patient ambulatory with steady gait.
== END 2020-06-03 17:15 | disposition home or self-care (01) ==
LOC: ED 14:33
DX: F10.239 Alcohol dependence with withdrawal, unspecified (principal); R10.9 Unspecified abdominal pain; R11.2 Nausea with vomiting, unspecified; I10 Essential (primary) hypertension; E87.6 Hypokalemia; Z72.9 Problem related to lifestyle, unspecified; Y90.0 Blood alcohol level of less than 20 mg/100 ml
CPT/HCPCS: 36415; 80053; 83690; 85025; 96361; 96365; 96375; 96376; 99284; J1953; J2060; J2405; J7030

== ENCOUNTER 2020-06-20 13:06 | Inpatient (IN) | payer MEDICAID ==
[~2020-06-20] VITALS: Ht 182.9 cm; Wt 77.5 kg
[2020-06-20] MEDS ORDERED: BISACODYL 10 MG SUPP PR PRN (13:30)
[2020-06-20] MEDS ORDERED: ACETAMINOPHEN 325 MG TABLET PO PRN (13:30)
[2020-06-20] MEDS ORDERED: POLYETHYLENE GLYCOL 17 GM PACKET PO PRN (13:30)
[2020-06-20] MEDS ORDERED: ONDANSETRON ODT 4 MG PO PRN (13:30)
[2020-06-20] MEDS ORDERED: LORazepam 1MG TABLET PO PRN ×2 (13:30→14:00)
[2020-06-20] MEDS ORDERED: DOCUSATE 100 MG CAPSULE PO PRN (13:30)
[2020-06-20] MEDS ORDERED: PLEASE ENTER HEIGHT AND WEIGHT MC SCH (14:00)
[2020-06-20 14:02] VITALS: BP 113/70
[2020-06-20] MEDS: LORazepam 1MG TABLET PO SCH ×2 (14:59→20:30)
[2020-06-20] MEDS ORDERED: LORazepam 1MG TABLET PO SCH (15:00)
[2020-06-20] MEDS: ACAMPROSATE 333 MG TABLET.DR PO SCH ×2 (16:38→20:30)
[2020-06-20] MEDS ORDERED: LEVE500T53 PO (16:41)
[2020-06-20 17:39] LABS: MICROSCOPIC NOT IND
[2020-06-20 19:37] VITALS: BP 105/62
[2020-06-20] MEDS: DIVALPROEX 500 MG TABLET.DR PO SCH (20:30)
[2020-06-20] MEDS: LEVETIRACETAM 500 MG TABLET PO SCH (20:30)
[2020-06-21] MEDS: LORazepam 1MG TABLET PO SCH ×4 (03:00→20:33)
[2020-06-21 07:06] VITALS: BP 94/62
[2020-06-21 07:11] LABS: ALBUMIN 3.3 g/dL (3.4-5.0); ANION GAP 6 mmol/L (5-15); CALCIUM 9.2 mg/dL (8.5-10.1); CHLORIDE 101 mmol/L (98-107)
[2020-06-21 07:20] LABS: ALANINE AMINOTRANSFERASE 98 U/L (12-78); ALKALINE PHOSPHATASE 72 U/L (45-117); BILIRUBIN,TOTAL 0.8 mg/dL (0.2-1.0); CHOLESTEROL, TOTAL 196 mg/dL (140-239); CREATININE 0.73 mg/dL (0.7-1.3); FREE T4 (FREE THYROXINE) 1.02 ng/dL (0.76-1.46); HDL CHOL % 34 % (26-37); HDL CHOLESTEROL (DIRECT) 66 mg/dL (40-60); LDL CHOLESTEROL,CALCULATED 119 mg/dL (54-169); LDL/HDL RATIO 1.8 (0.5-3.0); TOTAL PROTEIN 6.9 g/dL (6.4-8.2); TRIGLYCERIDES 55 mg/dL (50-200); VLDL CHOLESTEROL 11 mg/dL (0-25)
[2020-06-21 07:42] LABS: BASOPHILS # (AUTO) 0.03 x10^3/uL (0-0.1); BASOPHILS % (AUTO) 0 % (0-1); EOSINOPHILS # (AUTO) 0.12 x10^3/uL (0-0.4); EOSINOPHILS % (AUTO) 2 % (1-7); LYMPHOCYTES # (AUTO) 1.81 x10^3/uL (1-3.4); LYMPHOCYTES % (AUTO) 25 % (22-44); MD SCAN; MEAN CORPUSCULAR HEMOGLOBIN 29.8 pg (27.5-34.5); MEAN CORPUSCULAR HGB CONC 33.2 g/dL (33.2-36.2); MEAN CORPUSCULAR VOLUME 89.6 fL (81-97); MEAN PLATELET VOLUME 9.7 fL (7.4-10.4); MONOCYTES # (AUTO) 0.48 x10^3/uL (0.2-0.8); MONOCYTES % (AUTO) 7 % (2-9); NEUTROPHILS # (AUTO) 4.86 x10^3/uL (1.8-6.8); NEUTROPHILS % (AUTO) 67 % (42-75); PLATELET COUNT 170 x10^3/uL (130-400); RED BLOOD COUNT 4.93 x10^6/uL (4.38-5.82); RED CELL DISTRIBUTION WIDTH 15.8 % (9.4-14.8)
[2020-06-21] MEDS: ACAMPROSATE 333 MG TABLET.DR PO SCH ×3 (08:13→20:33)
[2020-06-21] MEDS: FOLIC ACID 1 MG TABLET PO SCH (08:13)
[2020-06-21] MEDS: MULTIVITAMIN 1 TABLET PO SCH (08:13)
[2020-06-21] MEDS: THIAMINE 100MG TABLET PO SCH (08:13)
[2020-06-21] MEDS: DIVALPROEX 500 MG TABLET.DR PO SCH ×2 (08:13→20:33)
[2020-06-21] MEDS: LEVETIRACETAM 500 MG TABLET PO SCH ×2 (08:13→20:33)
[2020-06-21] MEDS: NICOTINE 21 MG/24 HR PATCH.TD24 TD SCH (08:15)
[2020-06-21] MEDS: SERTRALINE 50MG TABLET PO SCH (12:00)
[2020-06-21 19:34] VITALS: BP 93/64
[2020-06-21] MEDS: PRAZOSIN 2 MG CAPSULE PO SCH (20:33)
[2020-06-22] MEDS: LORazepam 1MG TABLET PO SCH ×4 (04:01→19:56)
[2020-06-22 07:27] VITALS: BP 103/62
[2020-06-22] MEDS: MULTIVITAMIN 1 TABLET PO SCH (08:39)
[2020-06-22] MEDS: SERTRALINE 50MG TABLET PO SCH (08:40)
[2020-06-22] MEDS: LEVETIRACETAM 500 MG TABLET PO SCH ×2 (08:40→19:57)
[2020-06-22] MEDS: ACAMPROSATE 333 MG TABLET.DR PO SCH ×3 (08:40→19:56)
[2020-06-22] MEDS: THIAMINE 100MG TABLET PO SCH (08:40)
[2020-06-22] MEDS: DIVALPROEX 500 MG TABLET.DR PO SCH ×2 (08:40→19:56)
[2020-06-22] MEDS: FOLIC ACID 1 MG TABLET PO SCH (08:40)
[2020-06-22] MEDS: NICOTINE 21 MG/24 HR PATCH.TD24 TD SCH (09:00)
[2020-06-22 19:45] VITALS: BP 112/74
[2020-06-22] MEDS: PRAZOSIN 2 MG CAPSULE PO SCH (19:57)
[2020-06-23] MEDS: LORazepam 1MG TABLET PO SCH ×2 (02:53→09:44)
[2020-06-23 06:39] VITALS: BP 84/56
[2020-06-23 09:31] VITALS: BP 107/74
[2020-06-23] MEDS: LEVETIRACETAM 500 MG TABLET PO SCH (09:41)
[2020-06-23] MEDS: FOLIC ACID 1 MG TABLET PO SCH (09:42)
[2020-06-23] MEDS: SERTRALINE 50MG TABLET PO SCH (09:42)
[2020-06-23] MEDS: THIAMINE 100MG TABLET PO SCH (09:42)
[2020-06-23] MEDS: NICOTINE 21 MG/24 HR PATCH.TD24 TD SCH (09:42)
[2020-06-23] MEDS: MULTIVITAMIN 1 TABLET PO SCH (09:42)
[2020-06-23] MEDS: ACAMPROSATE 333 MG TABLET.DR PO SCH (09:42)
[2020-06-23] MEDS: DIVALPROEX 500 MG TABLET.DR PO SCH (09:48)
[2020-06-23] MEDS ORDERED: PRAZ2CAP2 PO (11:22)
[2020-06-23] MEDS ORDERED: NICO-487 TD (11:22)
[2020-06-23] MEDS ORDERED: MULT-449 PO (11:22)
[2020-06-23] MEDS ORDERED: LEVE500T53 PO (11:22)
[2020-06-23] MEDS ORDERED: DIVA-61 PO (11:22)
[2020-06-23] MEDS ORDERED: SERT50TA28 PO (11:22)
[2020-06-23] MEDS ORDERED: ACAM333T7 PO (11:22)
== END 2020-06-23 13:23 | disposition home or self-care (01) | DRG 885 ==
LOC: 3E 13:14
PROVIDERS: ADMIT Psychiatry & Neurology Psychosomatic Medicine; ATTEND Psychiatry & Neurology Psychosomatic Medicine
DX: F33.2 Major depressive disorder, recurrent severe without psychotic features (principal); R45.851 Suicidal ideations; F10.239 Alcohol dependence with withdrawal, unspecified; F43.10 Post-traumatic stress disorder, unspecified; G40.909 Epilepsy, unspecified, not intractable, without status epilepticus; F15.10 Other stimulant abuse, uncomplicated; F12.10 Cannabis abuse, uncomplicated; F10.229 Alcohol dependence with intoxication, unspecified; D72.829 Elevated white blood cell count, unspecified; Z79.899 Other long term (current) drug therapy; Z81.8 Family history of other mental and behavioral disorders; Z87.891 Personal history of nicotine dependence; Z91.14 Patient's other noncompliance with medication regimen
CPT/HCPCS: 36415; 71045; 80053; 80061; 81003; 82140; 84439; 84443; 85025; 86704; 86706; 86708; 86803; 87340; 93005

== ENCOUNTER 2020-06-28 14:23 | Emergency (ER) | payer MEDICAID ==
[~2020-06-28] VITALS: Ht 182.9 cm; Wt 75.0 kg
[~2020-06-28 14:23] MED LIST changes: +ACAM333T7 PO; +DIVA-61 PO; +MULT-449 PO; +NICO-487 TD; +PRAZ2CAP2 PO; +SERT50TA28 PO
[2020-06-28 14:25] VITALS: BP 108/72
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
[2020-06-28 15:34] LABS: BASOPHILS # (AUTO) 0.04 x10^3/uL (0-0.1); BASOPHILS % (AUTO) 1 % (0-1); EOSINOPHILS # (AUTO) 0.19 x10^3/uL (0-0.4); EOSINOPHILS % (AUTO) 2 % (1-7); LYMPHOCYTES # (AUTO) 2.61 x10^3/uL (1-3.4); LYMPHOCYTES % (AUTO) 33 % (22-44); MD NO; MEAN CORPUSCULAR HEMOGLOBIN 29.7 pg (27.5-34.5); MEAN CORPUSCULAR HGB CONC 32.3 g/dL (33.2-36.2); MEAN CORPUSCULAR VOLUME 91.9 fL (81-97); MEAN PLATELET VOLUME 9.8 fL (7.4-10.4); MONOCYTES # (AUTO) 0.92 x10^3/uL (0.2-0.8); MONOCYTES % (AUTO) 12 % (2-9); NEUTROPHILS # (AUTO) 4.21 x10^3/uL (1.8-6.8); NEUTROPHILS % (AUTO) 53 % (42-75); PLATELET COUNT 200 x10^3/uL (130-400); RED BLOOD COUNT 5.19 x10^6/uL (4.38-5.82)
[2020-06-28 15:39] LABS: ALANINE AMINOTRANSFERASE 76 U/L (12-78); ALBUMIN 3.8 g/dL (3.4-5.0); ANION GAP 5 mmol/L (5-15); CALCIUM 8.7 mg/dL (8.5-10.1); CHLORIDE 108 mmol/L (98-107); CREATININE 0.68 mg/dL (0.7-1.3); SALICYLATE LEVEL 4.5 mg/dL (2.8-20.0)
[2020-06-28 15:41] LABS: ALKALINE PHOSPHATASE 77 U/L (45-117); BILIRUBIN,TOTAL 0.2 mg/dL (0.2-1.0)
--- NOTE | 2020-06-28 15:56 | NUR ---
psych woodworker in room speaking with pt.
--- NOTE | 2020-06-28 16:24 | NUR ---
PT STATED HE NEEDS HELP HE HAS BEEN OFF HIS MEDS FOR HIS PSYCH CONDITIONS. PT DENIED SI/HI. PT IS INTOXICATED CURRENTLY. PT NOT PLACED ON LEGAL HOLD AT THIS TIME. PT UP FOR RECHECK LABS AND US ARE BACK.
--- NOTE | 2020-06-28 16:45 | NUR ---
PLAN AT THIS TIME IS FOR PT TO MTF, AND RE-EVAL IF NEEDED. PT NOT ON LEGAL HOLD. MEAL TRAY ORDERED.
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
== END 2020-06-28 17:27 | disposition home or self-care (01) ==
LOC: ED 15:02
DX: M79.672 Pain in left foot (principal); I10 Essential (primary) hypertension; G43.909 Migraine, unspecified, not intractable, without status migrainosus; F17.200 Nicotine dependence, unspecified, uncomplicated
CPT/HCPCS: 36415; 80053; 80164; 80307; 85025; 99284